=== PATIENT | female | born 1985 | race Caucasian/White ===

== ENCOUNTER 2020-01-23 15:23 | Emergency (ER) | payer BC, SELFPAY ==
--- NOTE | ~2020-01-23 | US_ITS ---
EXAMINATION: US OB >= 14 weeks Fetus DATE: 01/23/2020 17:09 INDICATION: Vaginal bleeding with TECHNIQUE: Real-time ultrasound of the pelvis was performed. COMPARISON: None. FINDINGS: There is a single living fetus in vertex presentation. The placenta is posterior and crosses the inte rnal cervical os. heart rate is 144 beats per minute (bpm). cardiac activity and m ovement are noted. The amniotic fluid index is subjectively normal. The following biometric data were obtained: Biparietal diameter (BPD): 3.5 cm; head circumference (HC): 13.6 cm; abdominal circumference (AC): 11 .5 cm; femur length (FL): 2.3 cm. These measurements are concordant. Estimated weight is 186 g +/- 27 g, which correlates with the 94th percentile when 07/07/2020 is used as estimated date of delivery. As single measurements, these parameters are each equal to the following estimated gestational ages w ith ranges of +/- 2 standard deviations: BPD: 17 weeks 0 days +/- 1 weeks 1 days. HC: 17 weeks 1 days +/- 1 weeks 1 days. AC: 17 weeks 2 days +/- 1 weeks 5 days. FL: 17 weeks 1 days +/- 1 weeks 3 days. estimated gestational age based solely on measurements from this exam is 17 weeks 1 days +/- 1 weeks 1 days. IMPRESSION: 1. Single living fetus in vertex presentation. 2. Estimated weight is 186 g +/- 27 g, which correlates with the 94th percentile when 07/07/2020 is used as estimated date of delivery. 3. Placenta previa. These findings were discussed with Dr. Sandeep MD in the Emergency Department at 1715 hours on 01/23. Reviewed, dictated and finalized at location A. OGY TUTOR IMPRESSION: 1. Single living fetus in vertex presentation. 2. Estimated weight is 186 g +/- 27 g, which correlates with the 94th per centile when 07/07/2020 is used as estimated date of delivery. 3. Placenta previa. These findings were discussed with Dr. Sandeep MD in the Emergency Department at 1715 hours on 01/23/2020.
[2020-01-23 15:33] VITALS: BP 144/99; PULSE 109; RESP 18; TEMP 36.2; O2SAT 100
--- NOTE | 2020-01-23 16:05 | PC.NURSE ---
HR 163 per handheld doppler, faint heart sounds heard.
[2020-01-23 16:17] LABS: Basophils Percent Auto 0.2 % (0.2-1.2); Eosinophils Absolute Auto 0.1 K/mm3 (0-0.3); Eosinophils Percent Auto 0.6 % (0-4.4); Hematocrit 37.3 % (37.0-47.0); Hemoglobin 12.6 g/dL (12.0-15.0); Immature Granulocyte Absolute 0.03 K/mm3 (0.00-0.031); Immature Granulocyte Percent A 0.3 % (0-0.5); Lymphocytes Absolute Auto 2.13 K/mm3 (0.9-3.2); Lymphocytes Percent Auto 18.2 % (18.3-44.2); Mean Corpuscular HGB Conc 33.8 g/dl (32-36); Mean Corpuscular Hemoglobin 31.1 pg (26-34); Mean Corpuscular Volume 92.1 fl (80-100); Mean Platelet Volume 10.5 fl (7.4-10.4); Monocytes Absolute Auto 0.5 K/mm3 (0.1-0.6); Monocytes Percent Auto 4.5 % (2.6-8.5); Neutrophils Absolute Auto 8.9 K/mm3 (1.3-6.7); Neutrophils Percent Auto 76.2 % (45.5-73.1); Platelet Count Result 336 k/mm3 (150-375); Red Blood Count 4.05 M/mm3 (4.2-5.4); Red Cell Distribution Width 12.1 % (11.5-14.5); White Blood Count 11.7 K/mm3 (4.5-10.0)
[2020-01-23 16:29] LABS: Add Urine Microscopic? YES; Appearance Urine Cloudy (Clear); Bacteria Urine 3+ /hpf; Bilirubin Urine Negative (Negative); Blood Urine 3+ (Negative); Color Urine Red (Yellow); Glucose Urine UA Negative (Negative); Ketones Urine Negative (Negative); Leukocyte Esterase Ur Negative LEU/UL (Negative); Nitrate Urine Negative (Negative); Protein Urine 1+ mg/dL (Negative); RBC Urine 21-50 /hpf (0-2); Squamous Epithelial Cell Urine Many /hpf (Few); Urobilinogen Urine Negative mg/dL (<2.0); WBC Urine 0-3 /hpf
[2020-01-23 16:31] LABS: Specific Grav Ur 1.004 (1.001-1.035)
--- NOTE | 2020-01-23 17:50 | ED.PREGNANCY ---
HPI - General Chief complaint: Vaginal Bleeding Stated complaint: preg/vag bleed Time Seen by Provider: 01/23/20 15:32 Source: patient Mode of arrival: ambulatory Limitations: no limitations History of Present Illness HPI Narrative: Patient presents with chief complaint of bright red vaginal bleeding that began at approximately 3 PM today. Patient states she was using the restroom and noted bright red blood when wiping. Patient denies any pelvic pain, nausea, vomiting, fever, trauma or any other symptoms. Patient states that this is her second and her first resulted in miscarriage at approximately 6 weeks. Patient states that her HEALTH INSURANCE SALES AGENT is Dr. Renu Perez. She reports she had her last ultrasound approximately 2 to 3 weeks ago and was told that her placenta was low-lying but denies any other no abnormalities. Patient has urinary symptoms or passage of large blood clot. Review of Systems Review of Systems: Narrative: CONSTITUTIONAL: Denies fever, chills, or sweats. EYES: Denies visual changes, redness, or discharge. ENT: Denies rhinorrhea, congestion, sore throat, or otalgia. CARDIOVASCULAR: Denies chest pain, palpitations, or edema. RESPIRATORY: Denies cough or dyspnea. GASTROINTESTINAL: Denies abdominal pain, nausea, vomiting, or diarrhea. GENITOURINARY: Reports vaginal bleeding SKIN: Denies rash or itching. MUSCULOSKELETAL: Denies back pain, joint pain, or myalgia. NEUROLOGIC: Denies headache, numbness, dizziness, or weakness. PSYCHIATRIC: Denies anxiety or depression. Exam Narrative: Exam Narrative: GENERAL: Well-appearing, well-nourished, and in no acute distress. HEAD: Normocephalic, atraumatic. EYES: PERRLA and EOMI. ENT: Nares clear, no rhinorrhea or epistaxis. Mucous membranes moist. External ears nose and mouth normal. NECK: Supple. No adenopathy or masses. CHEST: No respiratory distress. HEART: Regular rate and rhythm. Normal peripheral pulses. ABDOMEN: Soft, nontender, nondistended. EXTREMITIES: Normal range of motion. No edema. SKIN: Warm, dry, no rash. NEURO: No focal deficits. Alert and oriented x3. PSYCH: Patient is anxious and tearful.. Course Vital Signs Vital signs: Vital Signs Temperature 97.2 F L 01/23/20 15:33 Pulse Rate 109 H 01/23/20 15:33 Respiratory Rate 18 01/23/20 15:33 Blood Pressure 144/99 H 01/23/20 15:33 Pulse Oximetry 100 01/23/20 15:33 Temperature 97.2 F L 01/23/20 15:33 Pulse Rate 109 H 01/23/20 15:33 Respiratory Rate 18 01/23/20 15:33 Blood Pressure 144/99 H 01/23/20 15:33 Pulse Oximetry 100 01/23/20 15:33 MDM - OB/Uterine Contractions MDM Narrative Medical decision making narrative: Consult with Dr. Gaspar who is on-call for Dr. Renu Perez. He states patient can be discharged home and can follow-up in the office with them early next week. He states the patient does not have any lifting requirements but he would avoid heavy exercise and no sexual intercourse or putting anything into the vagina to avoid bumping cervix until given the clearance by HEALTH INSURANCE SALES AGENT. The patient was informed of these findings of placenta previa and the instructions given by her HEALTH INSURANCE SALES AGENT. Patient verbalized understanding agreement and states she is ready to be discharged home at this time. Differential Diagnosis Differential diagnosis: Likely pre-eclampsia and other (Miscarriage, placenta previa) Lab Data Result diagrams: 01/23/20 16:11 Labs: Lab Results 01/23/20 01/23/20 01/23/20 Range/Units 16:10 16:11 16:11 WBC 11.7 H (4.5-10.0) K/mm3 RBC 4.05 L (4.2-5.4) M/mm3 Hgb 12.6 (12.0-15.0) g/dL Hct 37.3 (37.0-47.0) % MCV 92.1 (80-100) fl MCH 31.1 (26-34) pg MCHC 33.8 (32-36) g/dl RDW 12.1 (11.5-14.5) % Plt Count 336 (150-375) k/mm3 MPV 10.5 H (7.4-10.4) fl Immature Gran % (Auto) 0.3 (0-0.5) % Neut % (Auto) 76.2 H (45.5-73.1) % Lymph % (Auto) 18.2 L (18.3-44.2) % [place] % (Auto) 4
[2020-01-23 18:03] VITALS: BP 132/84; PULSE 89; RESP 18; O2SAT 98
== END 2020-01-23 18:05 | disposition home or self-care (01) ==
PROVIDERS: Physician Assistant; Emergency Provider Family Medicine; PCP Obstetrics & Gynecology
DX: O44.12 Complete placenta previa with hemorrhage, second trimester (principal); Z3A.17 17 weeks gestation of pregnancy
CPT/HCPCS: 36415; 76805; 81001; 84702; 85025; 86850; 86900; 86901; 99284

== ENCOUNTER 2020-01-31 14:28 | Observation (INO) | payer BC, SELFPAY ==
[2020-01-31 14:45] VITALS: TEMP 36.6
[2020-01-31 14:47] VITALS: BP 126/68; PULSE 99
[2020-01-31 15:20] LABS: Add Urine Microscopic? NO; Appearance Urine Clear (Clear); Bilirubin Urine Negative (Negative); Blood Urine Negative (Negative); Color Urine Colorless (Yellow); Glucose Urine UA Negative (Negative); Ketones Urine Negative (Negative); Leukocyte Esterase Ur Negative LEU/UL (NEGATIVE); Nitrate Urine Negative (Negative); Protein Urine Negative (Negative); Specific Grav Ur 1.005 (1.001-1.035); Urobilinogen Urine Negative mg/dL (<2.0)
--- NOTE | 2020-01-31 15:57 | PC.NURSE ---
[address] Renu Perez.
--- NOTE | 2020-01-31 16:00 | PC.NURSE ---
1500 ROMplus verified as negative. No leaking noted on chux. Reassured pt of these two outcomes.
--- NOTE | 2020-02-01 07:18 | P.PNOB_ITS ---
OB - Triage/Final Diagnosis Visit Information Date of evaluation: 01/31/20 Reason for evaluation: other (leaking fluid) Evaluation Laboratory results: Laboratory Tests 01/31/20 15:14 Urine Color Colorless Urine Appearance Clear Urine pH 7.0 Ur Specific [place] 1.005 Urine Protein Negative Urine Glucose (UA) Negative Urine Ketones Negative Ur Blood (Man) Negative Urine Nitrate Negative Urine Bilirubin Negative Urine Urobilinogen Negative Ur Leukocyte Esterase Negative Vital signs: Vital Signs - 24 hr 01/31/20 14:45 01/31/20 14:47 Temperature 97.9 F Pulse Rate 99 Blood Pressure 126/68
== END 2020-01-31 15:40 | disposition home or self-care (01) ==
LOC: ANHOBPP 14:36
PROVIDERS: Admitting Provider Obstetrics & Gynecology; PCP Obstetrics & Gynecology; Visit Provider Obstetrics & Gynecology
DX: O42.90 Premature rupture of membranes, unspecified as to length of time between rupture and onset of labor, unspecified weeks of gestation (principal); Z3A.00 Weeks of gestation of pregnancy not specified
CPT/HCPCS: 81003; 84112; 87086; 87088; G0378; G0379

== ENCOUNTER 2020-02-10 06:42 | Observation (INO) | payer BC, SELFPAY ==
--- NOTE | ~2020-02-10 | US_ITS ---
EXAMINATION: US OB limited, US OB transvaginal EXAM DATE: 02/10/2020 07:44 INDICATION: Vaginal bleeding, . Second trimester. TECHNIQUE: Pelvic obstetrical transabdominal and transvaginal sonogram was performed by a technellen helms. There are multiple grayscale and Doppler images available for interpretation. Comparison is made to prior examination from 01/23/2020. FINDINGS: There is a single fetus identified in transverse presentation with a heart rate of 154 beat s per minute. The placenta is located in the low posterior position, placental margin appears to exte nd to within 1 cm of internal cervical os. Cervical canal length is 4 cm, with anechoic region at the placental margin near the internal cervical os measuring 1 cm in diameter by 4 mm in thickness, coul d be tiny retroplacental hemorrhage. There is another similar-appearing thin anechoic region higher u p measuring 2 x 3 cm diameter, by 7 mm in thickness. Amniotic Fluid Index 14 cm, normal. IMPRESSION: 1. Low-lying placenta with 2 small anechoic retroplacental regions, possible small retroplacental he morrhages. Recommend follow-up exam. 2. Normal heart rate, 1 54 bpm. 3. Normal MAIKEL 14 cm. Reviewed, dictated and finalized at location A. IMPRESSION: 1. Low-lying placenta with 2 small anechoic retroplacental regions, possible s mall retroplacental hemorrhages. Recommend follow-up exam. 2. Normal heart rate, 1 54 bpm. 3. Normal MAIKEL 14 cm.
--- NOTE | 2020-02-10 06:42 | OBADM ---
This patient, Lorraine Estrada, admitted to the OB room OB Post 117 for observation. Patient/family oriented to hospital policies and general routines including ID bracelet, bed and alarms, visiting hours, pain management, procedures, bathroom and other care routines, personal items, smoking policy, room service/diet, and visiting hours. Patient/Family are encouraged to report perceived risks to care and to ask questions if they do not understand what they are told or what they should do.
[2020-02-10 06:59] VITALS: BP 109/60; PULSE 69
[2020-02-10 07:00] VITALS: BP 110/60; PULSE 72
--- NOTE | 2020-02-10 08:08 | PM.OBTRLD ---
OB - Triage/Final Diagnosis Visit Information Date of evaluation: 02/10/20 Reason for evaluation: other (spotting) Evaluation Vital signs: Vital Signs - 24 hr 02/10/20 06:59 02/10/20 07:00 Pulse Rate 69 72 Blood Pressure 109/60 110/60
== END 2020-02-10 08:40 | disposition home or self-care (01) ==
PROVIDERS: Admitting Provider Obstetrics & Gynecology; Visit Provider Obstetrics & Gynecology
DX: O26.852 Spotting complicating pregnancy, second trimester (principal); Z3A.18 18 weeks gestation of pregnancy
CPT/HCPCS: 76815; 76817; G0378; G0379

== ENCOUNTER 2020-05-06 16:48 | Outpatient (CLI) | payer OTHER, BC, SELFPAY ==
[2020-05-06 17:09] VITALS: BP 121/72; PULSE 92
[2020-05-06 17:15] VITALS: BP 120/70; PULSE 86
[2020-05-06 17:49] VITALS: BP 120/70; PULSE 93
== END 2020-05-06 18:00 | disposition home or self-care (01) ==
LOC: ANHOBOP 17:00 → ANHOBPP 17:01
PROVIDERS: Visit Provider Obstetrics & Gynecology
DX: O42.90 Premature rupture of membranes, unspecified as to length of time between rupture and onset of labor, unspecified weeks of gestation (principal); Z3A.00 Weeks of gestation of pregnancy not specified
CPT/HCPCS: 59025; 84112; 99199

== ENCOUNTER 2020-06-06 11:24 | Outpatient (CLI) | payer BC, SELFPAY ==
[2020-06-06 12:14] VITALS: BP 127/76; PULSE 78
== END 2020-06-06 12:20 | disposition home or self-care (01) ==
LOC: ANHOBOP 12:15 → ANHOBPP 12:16
PROVIDERS: Visit Provider Obstetrics & Gynecology
DX: O42.90 Premature rupture of membranes, unspecified as to length of time between rupture and onset of labor, unspecified weeks of gestation (principal); Z3A.00 Weeks of gestation of pregnancy not specified
CPT/HCPCS: 59025; 84112; 99199

== ENCOUNTER 2020-06-16 12:55 | Outpatient (RCR) | payer BC, SELFPAY ==
[2020-05-05 14:42] VITALS: BP 119/71
--- NOTE | 2020-05-05 17:22 | PC.NURSE ---
Spoke with Dr. Renu Perez, reactive NST for gesational age, patient amrked 4 movemnts in 30 mintues, orders to DC home.
[2020-05-18 15:40] VITALS: BP 113/59; PULSE 87
[2020-05-26 11:02] VITALS: BP 115/65; PULSE 88
[2020-06-02 08:54] VITALS: BP 121/67; PULSE 88
[2020-06-09 10:43] VITALS: BP 122/70; PULSE 87
[2020-06-16 13:20] VITALS: BP 127/72; PULSE 80
== END 2020-06-25 11:15 | disposition home or self-care (01) ==
LOC: ANHOBOP 12:55
PROVIDERS: Visit Provider Obstetrics & Gynecology
DX: O36.8130 Decreased fetal movements, third trimester, not applicable or unspecified (principal); Z3A.31 31 weeks gestation of pregnancy; O41.03X0 Oligohydramnios, third trimester, not applicable or unspecified; Z3A.32 32 weeks gestation of pregnancy; Z3A.34 34 weeks gestation of pregnancy; O09.813 Supervision of pregnancy resulting from assisted reproductive technology, third trimester; Z3A.35 35 weeks gestation of pregnancy; Z3A.37 37 weeks gestation of pregnancy
CPT/HCPCS: 59025

== ENCOUNTER 2020-06-23 18:01 | Inpatient (IN) | payer BC, OTHER, SELFPAY ==
[2020-06-23] VITALS (15 sets, daily range): BP systolic 103–128; BP diastolic 57–82; PULSE 70–87; TEMP 36.5–37.3; BMI 40.7
--- NOTE | 2020-06-23 18:01 | LDADM ---
This patient, Lorraine Estrada, was admitted to Labor/Delivery/Recovery 106 on 06/23/20 at 18:01. Plans for labor, pain management and were discussed with patient. Patient/family oriented to hospital policies and general routines including ID bracelet, bed and alarms, visiting hours, pain management, procedures, bathroom and other care routines, personal items, smoking policy, room service/diet and guest tray routines, security routines, and visiting hours. Patient/Family are encouraged to report perceived risks to care and to ask questions if they do not understand what they are told or what they should do. See OBIX for further documentation.
[2020-06-23 18:50] LABS: Basophils Percent Auto 0.1 % (0.2-1.2); Eosinophils Absolute Auto 0.1 K/mm3 (0-0.3); Eosinophils Percent Auto 0.6 % (0-4.4); Hematocrit 32.9 % (37.0-47.0); Immature Granulocyte Absolute 0.05 K/mm3 (0.00-0.031); Immature Granulocyte Percent A 0.4 % (0-0.5); Lymphocytes Percent Auto 20.4 % (18.3-44.2); Mean Corpuscular HGB Conc 33.4 g/dl (32-36); Mean Corpuscular Hemoglobin 30.6 pg (26-34); Mean Corpuscular Volume 91.6 fl (80-100); Mean Platelet Volume 10.6 fl (7.4-10.4); Monocytes Absolute Auto 0.6 K/mm3 (0.1-0.6); Monocytes Percent Auto 5.2 % (2.6-8.5); Neutrophils Percent Auto 73.3 % (45.5-73.1); Platelet Count Result 325 k/mm3 (150-375); Red Blood Count 3.59 M/mm3 (4.2-5.4); Red Cell Distribution Width 12.8 % (11.5-14.5); White Blood Count 12.3 K/mm3 (4.5-10.0)
[2020-06-23] MEDS: DINOPROSTONE 10 MG VAG INSERT VAGINAL (18:55)
[2020-06-23] MEDS: LACTATED RINGERS 1,000 ML 125 ML IV CONT (19:00)
[2020-06-23] MEDS: AMPICILLIN 2 GM/NS 100 ML 2 GM/100 ML BAG IVPB (19:01)
[2020-06-23 19:02] LABS: Alanine Aminotransferase 10 U/L (4-35); Albumin Level 3.3 g/dL (3.5-5.1); Alkaline Phosphatase 124 U/L (38-126); Anion Gap 10.7 mmol/L (7-16); Aspartate Amino Transferase 17 U/L (14-36); Bilirubin,Total 0.2 mg/dL (0.2-1.3); Blood Urea Nitrogen 7 mg/dL (7-17); Calcium 9.2 mg/dL (8.4-10.2); Carbon Dioxide 22 mmol/L (22-30); Chloride 104 mmol/L (98-107); Estimated CRCL calculation 179 ml/min; Estimated Glomerular Filt Rate > 60; Glucose 110 mg/dL (65-105); Potassium 3.7 mmol/L (3.4-5.0); Sodium 133 mmol/L (137-145); Uric Acid 4.9 mg/dL (2.5-7.5)
[2020-06-23] MEDS: busPIRone HCL 10 MG TABLET PO (20:02)
[2020-06-23] MEDS: ZOLPIDEM TARTRATE 5 MG TABLET PO (20:02)
--- NOTE | 2020-06-23 21:14 | WPDANESEPPF ---
Anes - Initial Pre Proc Eval Procedure: labor epidural Date/Time: 06/23/20 21:14 Surgeon: Hakan Gaming MD Pre Op Diagnosis: labor pain Pre Op Diagnosis: Induction of Labor Patient Data Age: 34 Gender: F Height: 1.7 m Weight: 118 kg Last Vital Signs Temp 36.5 C 06/23/20 20:56 Pulse 72 06/23/20 20:45 BP 117/69 06/23/20 20:45 Allergies Allergy/AdvReac Type Severity Reaction Status Date / Time prochlorperazine Allergy Severe MUSCLE Verified 06/16/20 12:38 DYSTONIA Home Medications Medication Instructions Recorded Confirmed Type buspirone 10 mg PO BID 02/10/20 06/23/20 History levothyroxine 50 mcg PO DAILY 02/10/20 06/23/20 History PNV cmb#95-ferrous fumarate-FA 1 tablet PO DAILY 05/06/20 06/23/20 History [] cholecalciferol (vitamin D3) 50 mcg PO DAILY 05/06/20 06/23/20 History [Vitamin D3] Laboratory Tests 06/23/20 06/23/20 06/23/20 18:37 18:37 18:37 WBC 12.3 K/mm3 H K/mm3 (4.5-10.0) RBC 3.59 M/mm3 L M/mm3 (4.2-5.4) Hgb 11.0 g/dL L g/dL (12.0-15.0) Hct 32.9 % L % (37.0-47.0) MCV 91.6 fl fl (80-100) MCH 30.6 pg pg (26-34) MCHC 33.4 g/dl g/dl (32-36) RDW 12.8 % % (11.5-14.5) Plt Count 325 k/mm3 k/mm3 (150-375) MPV 10.6 fl H fl (7.4-10.4) Immature Gran % (Auto) 0.4 % % (0-0.5) Neut % (Auto) 73.3 % H % (45.5-73.1) Lymph % (Auto) 20.4 % % (18.3-44.2) [place] % (Auto) 5.2 % % (2.6-8.5) Eos % (Auto) 0.6 % % (0-4.4) Baso % (Auto) 0.1 % L % (0.2-1.2) Lymph # (Auto) 2.50 K/mm3 K/mm3 (0.9-3.2) [place] # (Auto) 0.6 K/mm3 K/mm3 (0.1-0.6) Eos # (Auto) 0.1 K/mm3 K/mm3 (0-0.3) Baso # (Auto) 0.0 K/mm3 K/mm3 (0.0-0.1) Abs Immat Gran (auto) 0.05 K/mm3 H K/mm3 (0.00-0.031) Absolute Neuts (auto) 9.0 K/mm3 H K/mm3 (1.3-6.7) Absolute Nucleated RBC 0.0 K/mm3 K/mm3 (0.0-0.012) Nucleated RBC % 0.0 % % (0.0-0.2) Sodium Potassium Chloride Carbon Dioxide Anion Gap BUN Creatinine Estim Creat Clear Calc Estimated GFR Glucose Uric Acid Cancelled Calcium Total Bilirubin AST ALT Alkaline Phosphatase Total Protein Albumin RPR Pending Blood Type Antibody Screen 06/23/20 06/23/20 18:37 18:37 WBC RBC Hgb Hct MCV MCH MCHC RDW Plt Count MPV Immature Gran % (Auto) Neut % (Auto) Lymph % (Auto) [place] % (Auto) Eos % (Auto) Baso % (Auto) Lymph # (Auto) [place] # (Auto) Eos # (Auto) Baso # (Auto) Abs Immat Gran (auto) Absolute Neuts (auto) Absolute Nucleated RBC Nucleated RBC % Sodium 133 mmol/L L mmol/L (137-145) Potassium 3.7 mmol/L mmol/L (3.4-5.0) Chloride 104 mmol/L mmol/L (98-107) Carbon Dioxide 22 mmol/L mmol/L (22-30) Anion Gap 10.7 mmol/L mmol/L (7-16) BUN 7 mg/dL mg/dL (7-17) Creatinine 0.50 mg/dL L mg/dL (0.7-1.0) Estim Creat Clear Calc 179 ml/min ml/min Estimated GFR > 60 (59 - ) Glucose 110 mg/dL H mg/dL (65-105) Uric Acid 4.9 mg/dL mg/dL (2.5-7.5) Calcium 9.2 mg/dL mg/dL (8.4-10.2) Total Bilirubin 0.2 mg/dL mg/dL (0.2-1.3) AST 17 U/L U/L (14-36) ALT 10 U/L U/L (4-35) Alkaline Phosphatase 124 U/L U/L (38-126) Total Protein 6.0 g/dL L g/dL (6.3-8.2) Albumin 3.3 g/dL L g/dL (3.5-5.1)
[2020-06-23] MEDS: AMPICILLIN 1 GM/NS 50 ML 1 GM/50 ML BAG IVPB (22:54)
[2020-06-24] VITALS (46 sets, daily range): BP systolic 75–142; BP diastolic 48–126; PULSE 65–104; TEMP 36.3–37.2
[2020-06-24] MEDS: AMPICILLIN 1 GM/NS 50 ML 1 GM/50 ML BAG IVPB ×6 (03:10→23:56)
[2020-06-24] MEDS: OXYTOCIN 30 UNITS/NS 500 ML 30 UNITS/500 ML BAG 6 UNITS IV CONT (05:18)
--- NOTE | 2020-06-24 06:33 | PM.IMHP ---
H&P: HPI History of Present Illness Chief complaint: Induction of Labor Narrative: Lorraine Estrada is a 34 year old female 010 whose last menstrual period was unknown but is an EDC of 07/07/2020 known by in vitro fertilization, presents for induction of labor secondary to oligohydramnios. She is positive for group B strep. Her has been mostly uncomplicated. She is hypothyroid but has been euthyroid on replacement. Review of Systems Review of Systems: All systems reviewed & are unremarkable except as noted in HPI and below PMFSH Past Medical History Medical History Herniated disc Family History Family History Mother Diabetes mellitus Alcohol abuse Father Hypertension Grandparent Colon cancer Breast cancer Pancreatic cancer Sibling SIDS (sudden syndrome) Social History Social History Years smoked: 10 Smoking status: Former smoker Substance use: never Spiritual care concerns: No Meds Home Medications and Allergies Home Medications Medication Instructions Recorded Confirmed Type buspirone 10 mg PO BID 02/10/20 06/23/20 History levothyroxine 50 mcg PO DAILY 02/10/20 06/23/20 History PNV cmb#95-ferrous fumarate-FA 1 tablet PO DAILY 05/06/20 06/23/20 History [] cholecalciferol (vitamin D3) 50 mcg PO DAILY 05/06/20 06/23/20 History [Vitamin D3] Allergies Allergy/AdvReac Type Severity Reaction Status Date / Time prochlorperazine Allergy Severe MUSCLE Verified 06/16/20 12:38 DYSTONIA Vital Signs Vital Signs - 24 hr 06/23/20 18:39 06/23/20 18:42 06/23/20 18:45 Temperature 99.1 F Pulse Rate 86 87 Blood Pressure 121/82 128/79 06/23/20 19:15 06/23/20 19:30 06/23/20 19:45 Temperature Pulse Rate 82 77 83 Blood Pressure 120/71 117/67 119/70 06/23/20 20:00 06/23/20 20:15 06/23/20 20:30 Temperature Pulse Rate 71 70 73 Blood Pressure 120/69 115/73 115/68 06/23/20 20:45 06/23/20 20:56 06/23/20 22:54 Temperature 97.7 F Pulse Rate 72 83 Blood Pressure 117/69 120/71 06/23/20 22:55 06/23/20 23:00 06/23/20 23:15 Temperature 98.1 F Pulse Rate 73 79 Blood Pressure 117/68 103/57 L 06/24/20 03:12 06/24/20 03:14 06/24/20 03:16 Temperature 97.5 F L Pulse Rate 85 85 Blood Pressure 111/54 L 99/52 L 06/24/20 03:30 06/24/20 03:45 06/24/20 04:00 Temperature Pulse Rate 85 83 88 Blood Pressure 101/52 L 102/54 L 102/54 L 06/24/20 04:15 06/24/20 05:23 06/24/20 05:30 Temperature Pulse Rate 104 H 89 86 Blood Pressure 119/79 120/57 L 117/66 06/24/20 05:45 06/24/20 06:00 06/24/20 06:16 Temperature Pulse Rate 81 88 86 Blood Pressure 114/64 95/48 L 109/62 06/24/20 06:32 Temperature 98.9 F Pulse Rate Blood Pressure Exam Const: General: no acute distress Eyes: General: appearance normal, both eyes and all related structures Neck: Neck: supple and no JVD Thyroid: thyroid normal Resp: Effort & Inspection: normal respiratory effort Auscultation: clear to auscultation bilaterally Cardio: Rate: regular rate Rhythm: regular rhythm GI: Inspection: non-distended GI Palp: Yes Soft to palpation, No Tenderness to palpation present (GI) and No Guarding due to palpation present (GI) Auscultation: normal bowel sounds : General: Yes bladder normal to palpation External Female Exam: normal external appearance Bimanual exam- vagina & uterus: normal palpation ( Cervix is a dimple and soft. FHTs were reassuring) Skin: General skin exam: no rashes or lesions noted Extrem: General: normal to inspection and no edema Psych: Mental Status: mental status grossly normal Affect: normal affect H&P: Results Labs Labs: Short CBC 06/23/20 Range/Units 18:37 WBC 12.3 H (4.5-10.0) K/mm3 Hgb 11.0 L (
[2020-06-24 07:30] LABS: Rapid Plasma Reagin Non-Reactive (NonReactive)
[2020-06-24] MEDS: LACTATED RINGERS 1,000 ML 125 ML IV CONT ×2 (11:11→23:56)
--- NOTE | 2020-06-24 12:07 | P.PNOB_ITS ---
OB - PN: Subj Subjective Date/time seen: 06/24/20 12:07 Interval history: cx unchanged/pit at 40 fhts ok poor progress OB - PN: Obj Data Labs CBC & Chem 7: 06/23/20 18:37 06/23/20 18:37 Labs: Laboratory Results - last 24 hr 06/23/20 06/23/20 06/23/20 18:37 18:37 18:37 WBC 12.3 H RBC 3.59 L Hgb 11.0 L Hct 32.9 L MCV 91.6 MCH 30.6 MCHC 33.4 RDW 12.8 Plt Count 325 MPV 10.6 H Immature Gran % (Auto) 0.4 Neut % (Auto) 73.3 H Lymph % (Auto) 20.4 [place] % (Auto) 5.2 Eos % (Auto) 0.6 Baso % (Auto) 0.1 L Lymph # (Auto) 2.50 [place] # (Auto) 0.6 Eos # (Auto) 0.1 Baso # (Auto) 0.0 Abs Immat Gran (auto) 0.05 H Absolute Neuts (auto) 9.0 H Absolute Nucleated RBC 0.0 Nucleated RBC % 0.0 Sodium Potassium Chloride Carbon Dioxide Anion Gap BUN Creatinine Estim Creat Clear Calc Estimated GFR Glucose Uric Acid Cancelled Calcium Total Bilirubin AST ALT Alkaline Phosphatase Total Protein Albumin RPR Non-reactive Blood Type Antibody Screen 06/23/20 06/23/20 18:37 18:37 WBC RBC Hgb Hct MCV MCH MCHC RDW Plt Count MPV Immature Gran % (Auto) Neut % (Auto) Lymph % (Auto) [place] % (Auto) Eos % (Auto) Baso % (Auto) Lymph # (Auto) [place] # (Auto) Eos # (Auto) Baso # (Auto) Abs Immat Gran (auto) Absolute Neuts (auto) Absolute Nucleated RBC Nucleated RBC % Sodium 133 L Potassium 3.7 Chloride 104 Carbon Dioxide 22 Anion Gap 10.7 BUN 7 Creatinine 0.50 L Estim Creat Clear Calc 179 Estimated GFR > 60 Glucose 110 H Uric Acid 4.9 Calcium 9.2 Total Bilirubin 0.2 AST 17 ALT 10 Alkaline Phosphatase 124 Total Protein 6.0 L Albumin 3.3 L RPR Blood Type AB Positive Antibody Screen Negative OB - PN A/P Time Spent With Patient Time: Total time spent is greater than 50% in coordination of care (as documented) at patient's floor/unit and/or counseling patient:
[2020-06-24] MEDS: ACETAMINOPHEN 500 MG TABLET 1000 MG PO (14:17)
--- NOTE | 2020-06-24 16:29 | PM.OBPNVD ---
OB - PN: Subj Subjective Date/time seen: 06/24/20 16:29 Interval history: cx unchanged/pit at 40 fhts ok poor progress offered rest/cervidil tonight/pit again am OB - PN: Obj Data Labs CBC & Chem 7: 06/23/20 18:37 06/23/20 18:37 Labs: Laboratory Results - last 24 hr 06/23/20 06/23/20 06/23/20 18:37 18:37 18:37 WBC 12.3 H RBC 3.59 L Hgb 11.0 L Hct 32.9 L MCV 91.6 MCH 30.6 MCHC 33.4 RDW 12.8 Plt Count 325 MPV 10.6 H Immature Gran % (Auto) 0.4 Neut % (Auto) 73.3 H Lymph % (Auto) 20.4 [place] % (Auto) 5.2 Eos % (Auto) 0.6 Baso % (Auto) 0.1 L Lymph # (Auto) 2.50 [place] # (Auto) 0.6 Eos # (Auto) 0.1 Baso # (Auto) 0.0 Abs Immat Gran (auto) 0.05 H Absolute Neuts (auto) 9.0 H Absolute Nucleated RBC 0.0 Nucleated RBC % 0.0 Sodium Potassium Chloride Carbon Dioxide Anion Gap BUN Creatinine Estim Creat Clear Calc Estimated GFR Glucose Uric Acid Cancelled Calcium Total Bilirubin AST ALT Alkaline Phosphatase Total Protein Albumin RPR Non-reactive Blood Type Antibody Screen 06/23/20 06/23/20 18:37 18:37 WBC RBC Hgb Hct MCV MCH MCHC RDW Plt Count MPV Immature Gran % (Auto) Neut % (Auto) Lymph % (Auto) [place] % (Auto) Eos % (Auto) Baso % (Auto) Lymph # (Auto) [place] # (Auto) Eos # (Auto) Baso # (Auto) Abs Immat Gran (auto) Absolute Neuts (auto) Absolute Nucleated RBC Nucleated RBC % Sodium 133 L Potassium 3.7 Chloride 104 Carbon Dioxide 22 Anion Gap 10.7 BUN 7 Creatinine 0.50 L Estim Creat Clear Calc 179 Estimated GFR > 60 Glucose 110 H Uric Acid 4.9 Calcium 9.2 Total Bilirubin 0.2 AST 17 ALT 10 Alkaline Phosphatase 124 Total Protein 6.0 L Albumin 3.3 L RPR Blood Type AB Positive Antibody Screen Negative OB - PN A/P Time Spent With Patient Time: Total time spent is greater than 50% in coordination of care (as documented) at patient's floor/unit and/or counseling patient:
[2020-06-24] MEDS: DINOPROSTONE 10 MG VAG INSERT VAGINAL (18:47)
[2020-06-24] MEDS: busPIRone HCL 10 MG TABLET PO (19:52)
[2020-06-24] MEDS: ZOLPIDEM TARTRATE 5 MG TABLET PO (19:52)
[2020-06-25] VITALS (94 sets, daily range): BP systolic 71–128; BP diastolic 39–90; PULSE 45–170; RESP 16–20; TEMP 36.5–37.3; O2SAT 93–100
[2020-06-25] MEDS: AMPICILLIN 1 GM/NS 50 ML 1 GM/50 ML BAG IVPB ×2 (03:56→08:07)
[2020-06-25] MEDS: OXYTOCIN 30 UNITS/NS 500 ML 30 UNITS/500 ML BAG 6 UNITS IV CONT (04:38)
--- NOTE | 2020-06-25 06:39 | PM.OBPNVD ---
OB - PN: Subj Subjective Date/time seen: 06/25/20 06:39 Interval history: styill closed fhts ok continue pit OB - PN: Obj Data Labs CBC & Chem 7: 06/23/20 18:37 06/23/20 18:37 Labs: Laboratory Results - last 24 hr 06/23/20 18:37 RPR Non-reactive OB - PN A/P Time Spent With Patient Time: Total time spent is greater than 50% in coordination of care (as documented) at patient's floor/unit and/or counseling patient:
--- NOTE | 2020-06-25 07:14 | WPDANESEPP ---
Anes - Eval Pre Procedure Procedure: Labor epidural Date/Time: 06/25/20 07:14 Surgeon: Amy Preop Diagnosis: pain during labor Pre Op Diagnosis: Induction of Labor Patient Data Age: 34 Gender: F Height: 1.7 m Weight: 118 kg Last Vital Signs Temp 36.6 C 06/25/20 04:00 Pulse 71 06/25/20 07:00 BP 122/77 06/25/20 07:00 Allergies Allergy/AdvReac Type Severity Reaction Status Date / Time prochlorperazine Allergy Severe MUSCLE Verified 06/16/20 12:38 DYSTONIA Home Medications Medication Instructions Recorded Confirmed Type buspirone 10 mg PO BID 02/10/20 06/23/20 History levothyroxine 50 mcg PO DAILY 02/10/20 06/23/20 History PNV cmb#95-ferrous fumarate-FA 1 tablet PO DAILY 05/06/20 06/23/20 History [] cholecalciferol (vitamin D3) 50 mcg PO DAILY 05/06/20 06/23/20 History [Vitamin D3] Laboratory Tests 06/23/20 18:37 RPR Non-reactive (NonReactive) Patient hx anesthesia problems: none Family hx anesthesia problems: none PMFSH Past Medical History Medical History (Updated 06/25/20 @ 07:15 by Latoya Keenan CRNA) Herniated disc Hypothyroidism affecting Morbid obesity with BMI of 40.0-44.9, adult Family History Family History Mother Diabetes mellitus Alcohol abuse Father Hypertension Grandparent Colon cancer Breast cancer Pancreatic cancer Sibling SIDS (sudden infant syndrome) Social History Social History Years smoked: 10 Smoking status: Former smoker Substance use: never Spiritual care concerns: No Exam Day of Procedure 06/25/20 07:14
--- NOTE | 2020-06-25 11:41 | WPDANESEPPF ---
Anes - Initial Pre Proc Eval Procedure: Operation Date: 06/25/20 12:00 Proposed Procedures p Section - Hakan Gaming MD Date/Time: 06/25/20 11:41 Surgeon: Hakan Gaming MD Pre Op Diagnosis: Induction of Labor Patient Data Age: 34 Gender: F Height: 1.7 m Weight: 118 kg Last Vital Signs Temp 36.5 C 06/25/20 06:47 Pulse 86 06/25/20 11:15 BP 120/63 06/25/20 11:15 Allergies Allergy/AdvReac Type Severity Reaction Status Date / Time prochlorperazine Allergy Severe MUSCLE Verified 06/16/20 12:38 DYSTONIA Home Medications Medication Instructions Recorded Confirmed Type buspirone 10 mg PO BID 02/10/20 06/23/20 History levothyroxine 50 mcg PO DAILY 02/10/20 06/23/20 History PNV cmb#95-ferrous fumarate-FA 1 tablet PO DAILY 05/06/20 06/23/20 History [] cholecalciferol (vitamin D3) 50 mcg PO DAILY 05/06/20 06/23/20 History [Vitamin D3] Patient hx anesthesia problems: none Family hx anesthesia problems: none PMFSH Past Medical History Medical History (Updated 06/25/20 @ 07:15 by Latoya Keenan CRNA) Herniated disc Hypothyroidism affecting Morbid obesity with BMI of 40.0-44.9, adult Family History Family History Mother Diabetes mellitus Alcohol abuse Father Hypertension Grandparent Colon cancer Breast cancer Pancreatic cancer Sibling SIDS (sudden syndrome) Social History Social History Years smoked: 10 Smoking status: Former smoker Substance use: never Spiritual care concerns: No Anes - Eval Final PreProcedure Day of Procedure 06/25/20 11:41 Patient weight: morbidly obese Heart: regular rate and rhythm Lungs: clear to auscultation and normal air movement Airway: Mallampati scale class II Neurological: alert and oriented Last oral intake: >/= 8 hours ASA classification: III Emergent: no Anesthetic plan: proceed Anesthesia type and monitoring: regional spinal and standard monitoring Informed Consent: The patient's anesthetic plan and its attendant risks and benefits were discussed with the patient/family/POA. Questions were solicited and answers provided to the satisfaction of the patient/family/POA.
--- NOTE | 2020-06-25 11:58 | PM.OBPNVD ---
OB - PN: Subj Subjective Date/time seen: 06/25/20 11:58 Interval history: no change offered ltcs fhts ok pt agrees OB - PN: Obj Data Labs CBC & Chem 7: 06/23/20 18:37 06/23/20 18:37 OB - PN A/P Time Spent With Patient Time: Total time spent is greater than 50% in coordination of care (as documented) at patient's floor/unit and/or counseling patient:
--- NOTE | 2020-06-25 13:34 | P.OP_ITS ---
Procedure Note - Detailed Date of procedure: 06/25/20 Pre-op diagnosis: Induction of Labor Surgeon: Hakan Gaming MD Postop diagnosis oligohydramnios/ arrest ofdilatation Anesthesia: Epidural Findings: Male infant 6 lb 15 oz with Apgars of 9 and 9 at 1 5 minutes respectively Q BL: 520cc Complications: None Procedure: Primary low-transverse section Description procedure: Patient was prepped draped normal sterile fashion placed in the supine position. Under excellent spinal an anesthetic the abdomen was entered in Pfannenstiel fashion. The abdomen was entered with sharp dissection the fascia incised in an upward outward fashion bilaterally. The underlying muscles were sharply dissected the parietal peritoneum elevated by Denisse clamps. This was carried superiorly and inferiorly to the dome of the bladder. A bladder flap was formed and a bladder blade returned. A low-transverse incision made in the head delivered in the ASHLEY position. Anterior posterior shoulder delivered spontaneously. Cord was clamped x2 and cut and the passed off the table given Apgars of 9 at minute and 9 [id number]. Cord blood was drawn and the placenta was then delivered intact manually. Uterus delivered on the abdomen wrapped in a moist towel. The remaining debris in the uterus was charlene an in after assuring no debris remained, the hysterotomy incision was closed with running locking 0 Vicryl from lateral edge to lateral edge. This was followed by 2nd imbricating running locking 0 Koul Vicryl from lateral edge to lateral edge. Hemostasis was assured. Tubes and ovaries appeared within normal limits. The uterus returned to the abdomen. The hysterotomy incision inspected 1 last time and noted be hemostatic. The laps removed and accounted for. The fascia closed with continuous running 0 Vicryl from lateral edge to midline bilaterally. Irrigation subcutaneous layer and the skin was closed with 4 O Monocryl and glue. All sponge, needle, instrument counts were correct. The patient went to recovery in satisfactory condition. There were no immediate complications
--- NOTE | 2020-06-25 16:09 | OBPPTRN ---
Patient transferred to post room # 285 via stretcher. Support person present. Oriented to unit, room, information board, rooming in, admission packet and security measures. Patient verbalizes understanding.
[2020-06-25] MEDS: busPIRone HCL 10 MG TABLET PO (21:00)
[2020-06-26 04:50] VITALS: BP 121/76; PULSE 76; RESP 16; TEMP 36.7
[2020-06-26 05:18] LABS: Basophils Percent Auto 0.2 % (0.2-1.2); Eosinophils Absolute Auto 0.1 K/mm3 (0-0.3); Eosinophils Percent Auto 0.4 % (0-4.4); Hematocrit 29.5 % (37.0-47.0); Hemoglobin 9.7 g/dL (12.0-15.0); Immature Granulocyte Absolute 0.05 K/mm3 (0.00-0.031); Immature Granulocyte Percent A 0.4 % (0-0.5); Lymphocytes Absolute Auto 1.87 K/mm3 (0.9-3.2); Lymphocytes Percent Auto 15.4 % (18.3-44.2); Mean Corpuscular HGB Conc 32.9 g/dl (32-36); Mean Corpuscular Hemoglobin 30.3 pg (26-34); Mean Corpuscular Volume 92.2 fl (80-100); Mean Platelet Volume 10.8 fl (7.4-10.4); Monocytes Absolute Auto 0.8 K/mm3 (0.1-0.6); Monocytes Percent Auto 6.2 % (2.6-8.5); Neutrophils Absolute Auto 9.4 K/mm3 (1.3-6.7); Neutrophils Percent Auto 77.4 % (45.5-73.1); Platelet Count Result 278 k/mm3 (150-375); Red Cell Distribution Width 12.9 % (11.5-14.5); White Blood Count 12.2 K/mm3 (4.5-10.0)
--- NOTE | 2020-06-26 06:36 | PM.OBPNVD ---
OB - PN: Subj Subjective Date/time seen: 06/26/20 06:36 Interval history: Pt doing well this AM. No complaints. Pain is controlled with PO medications. Ambulating and voiding without difficulty. Pt tolerating PO without N/V. Patient comments: no complaints and pain well controlled; no flatus present OB - PN: Obj Data Labs CBC & Chem 7: 06/26/20 04:50 06/23/20 18:37 Labs: Laboratory Results - last 24 hr 06/26/20 04:50 WBC 12.2 H RBC 3.20 L Hgb 9.7 L Hct 29.5 L MCV 92.2 MCH 30.3 MCHC 32.9 RDW 12.9 Plt Count 278 MPV 10.8 H Immature Gran % (Auto) 0.4 Neut % (Auto) 77.4 H Lymph % (Auto) 15.4 L [place] % (Auto) 6.2 Eos % (Auto) 0.4 Baso % (Auto) 0.2 Lymph # (Auto) 1.87 [place] # (Auto) 0.8 H Eos # (Auto) 0.1 Baso # (Auto) 0.0 Abs Immat Gran (auto) 0.05 H Absolute Neuts (auto) 9.4 H Absolute Nucleated RBC 0.0 Nucleated RBC % 0.0 OB - PN A/P Plan day: 1 Plan: routine care Comments: patient doing well this AM voiding spontaneously advance diet as tolerated H/H 9.06/23, will start iron daily continue routine PP care plan for infant circumcision today Time Spent With Patient Time: Total time spent is greater than 50% in coordination of care (as documented) at patient's floor/unit and/or counseling patient: Time with patient: less than 15 minutes Review of Systems Constitutional: Constitutional: Reports no additional constitutional complaints Cardiovascular: Cardiovascular: Reports no additional cardiovascular complaints Respiratory: Respiratory: Reports no additional respiratory complaints Gastrointestinal: Gastrointestinal: Reports no additional gastrointestinal complaints Genitourinary: Genitourinary: Reports no additional female genitourinary complaints Exam Const: General: comfortable and no acute distress Resp: Effort & Inspection: normal respiratory effort Auscultation: clear to auscultation bilaterally Cardio: Rate: regular rate GI: GI Palp: Yes Soft to palpation and Yes Tenderness to palpation present (GI) (appropriately tender around incision ) Auscultation: normal bowel sounds Other: fundus firm and below umbilicus Incision C/D/I Urinary Catheter: Urinary Catheter: urine clear Psych: Appearance: grossly normal Mental Status: mental status grossly normal Affect: normal affect
[2020-06-26] MEDS: LEVOTHYROXINE SODIUM 50 MCG TABLET PO (06:47)
[2020-06-26] MEDS: busPIRone HCL 10 MG TABLET PO ×2 (07:40→21:00)
[2020-06-26] MEDS: DOCUSATE SODIUM 100 MG CAPSULE PO ×2 (07:41→16:08)
[2020-06-26] MEDS: POLYSACCHARIDE IRON COMPLEX 150 MG CAPSULE PO ×2 (07:41→16:09)
[2020-06-26] MEDS: MULTIVIT/MIN/PREN/FOL AC/IRON TABLET 1 TAB PO (07:42)
[2020-06-26] MEDS: IBUPROFEN 600 MG TABLET PO ×3 (07:42→23:44)
[2020-06-26] MEDS: SIMETHICONE 80 MG TAB.CHEW PO ×2 (07:43→12:28)
[2020-06-26 09:30] VITALS: BP 110/64; PULSE 67; RESP 18; TEMP 36.6; O2SAT 97
--- NOTE | 2020-06-26 09:50 | WPDANLDPN2 ---
Anes-Prog Note L&D Date/Time: 06/26/20 09:50 Comfortable throughout: section Neuraxial method: spinal Epidural/Spinal procedure site: clean & non-tender Neuro status: Neuro function grossly intact. Cardiovascular status: normal Respiratory status: normal Airway patency: baseline Mental status: baseline Post-Op hydration status: normal Vital Signs: Last Vital Signs Temp 36.7 C 06/26/20 04:50 Pulse 76 06/26/20 04:50 Resp 16 06/26/20 04:50 BP 121/76 06/26/20 04:50 Pulse Ox 100 06/25/20 17:30 I/O: Intake & Output 06/25/20 06/26/20 06/26/20 23:59 07:59 15:59 Intake Total 1000 Output Total 125 1800 Balance -125 -800 Post-procedural complaints: none Patient feedback: Patient satisfied with anesthetic care.
--- NOTE | 2020-06-26 09:50 | WPDANLDNPN2 ---
Anes-Prog Note L&D-Neuraxial Date/Time: 06/26/20 09:50 Neuraxial medications: intrathecal PF morphine Opiod-related complaints: none Patient feedback: Patient satisfied with post-operative pain management.
[2020-06-26 13:00] VITALS: BP 113/77; PULSE 97; RESP 18; TEMP 36.5; O2SAT 98
[2020-06-26 18:50] VITALS: BP 122/76; PULSE 75; RESP 16; TEMP 36.7
[2020-06-27] MEDS: LEVOTHYROXINE SODIUM 50 MCG TABLET PO (06:58)
[2020-06-27] MEDS: IBUPROFEN 600 MG TABLET PO (06:59)
[2020-06-27 07:00] VITALS: BP 119/72; PULSE 71; RESP 18; TEMP 36.8; O2SAT 94
[2020-06-27] MEDS: SIMETHICONE 80 MG TAB.CHEW PO (07:01)
--- NOTE | 2020-06-27 07:37 | PM.OBDSVD ---
OB - DS: Summary OB Procedures : None OB Procedures Intrapartum: OB Procedures: : None Peripartum Data Delivery Method: Section Procedures: Procedures Operation Date: 06/25/20 12:00 Actual Procedures Side Surgeon p Section Hakan Gaming MD complications: none Status at Discharge Functional status at discharge: independent ambulation Overall status at discharge: patient is progressing back to baseline Time Spent with Patient Time attestation: Total time spent providing and/or coordinating discharge services: Time spent: Less than 30 minutes Exam Const: General: comfortable and no acute distress Resp: Effort & Inspection: normal respiratory effort Auscultation: clear to auscultation bilaterally Cardio: Rate: regular rate GI: Inspection: non-distended GI Palp: Yes Soft to palpation, No Firmness to palpation present (GI), Yes Tenderness to palpation present (GI) (mild tenderness over incision ) and No Guarding due to palpation present (GI) Auscultation: normal bowel sounds Psych: Appearance: grossly normal Mental Status: mental status grossly normal Discharge Plan Discharge Discharging Clinician: Brian Pearce Patient Disposition: Home, Self-Care Activity: as tolerated and pelvic rest Diet: regular Discharge Instructions: call or return for temperature >100.4, bleeding >2 pads/hr for 2 hrs, pain not controlled with medications, signs/symptoms of mastitis Patient Instructions: Antibiotic Form, (DC) Stand Alone Forms: General Discharge Information Follow-up/Referrals: Hakan Gaming MD [Physician] - Discharge Medications: New hydrocodone-acetaminophen 5-325 mg Tablet 1 tab PO Q3H PRN (Reason: Moderate Pain (4-6)) Qty: 28 RF: 0 ibuprofen 600 mg Tablet 600 mg PO Q6H PRN (Reason: Cramping) Qty: 30 RF: 0 docusate sodium 100 mg Capsule 100 mg PO BID Qty: 30 RF: 0 Continued buspirone 5 mg tablet 10 mg PO BID RF: 0 levothyroxine 50 mcg tablet 50 mcg PO DAILY RF: 0 PNV cmb#95-ferrous fumarate-FA [] 28 mg iron- 800 mcg Tablet 1 tablet PO DAILY RF: 0 Discontinued cholecalciferol (vitamin D3) [Vitamin D3] 50 mcg (2,000 unit) Tablet 50 mcg PO DAILY RF: 0 Date of admission: 06/23/20 18:01 Primary Care Provider: PHYSICIAN,LIQUIFIED NATURAL GAS SPECIALIST Admitting Provider: Hakan Gaming Attending physician on admission: Hakan Gaming
[2020-06-27] MEDS: MULTIVIT/MIN/PREN/FOL AC/IRON TABLET 1 TAB PO (10:57)
[2020-06-27] MEDS: DOCUSATE SODIUM 100 MG CAPSULE PO (10:57)
[2020-06-27] MEDS: busPIRone HCL 10 MG TABLET PO (10:57)
[2020-06-27] MEDS: POLYSACCHARIDE IRON COMPLEX 150 MG CAPSULE PO (10:57)
--- NOTE | 2020-06-27 11:18 | PC.NURSE ---
Patient viewed the discharge video Mother & Baby Care, The First Two Weeks . Patient was given the opportunity and encouraged to ask questions. Patient verbalized understanding of information shared and has been given the mother/baby guide for home reference.
[2020-06-28 11:13] VITALS: BP 121/71; PULSE 72; RESP 20; TEMP 36.7; O2SAT 100
== END 2020-06-27 12:40 | disposition home or self-care (01) | DRG 788 ==
LOC: ANHLDR 06-24 23:08 → ANHOB2 06-27 07:39 → ANHLDR 06-28 11:10 → ANHOB2 06-28 11:10
PROVIDERS: Admitting Provider Obstetrics & Gynecology; Visit Provider Student in an Organized Health Care Education/Training Program
PROC: 10D00Z1 Extraction of Products of Conception, Low, Open Approach (ICD-10-PCS; CPT 59514; principal; 2020-06-25 12:00)
DX: O41.03X0 Oligohydramnios, third trimester, not applicable or unspecified (principal); O99.824 Streptococcus B carrier state complicating childbirth; O62.1 Secondary uterine inertia; Z3A.38 38 weeks gestation of pregnancy; Z37.0 Single live birth; O99.214 Obesity complicating childbirth; Z87.891 Personal history of nicotine dependence; O99.284 Endocrine, nutritional and metabolic diseases complicating childbirth; E03.9 Hypothyroidism, unspecified; E66.01 Morbid (severe) obesity due to excess calories
CPT/HCPCS: 36415; 80053; 84550; 85025; 86592; 86850; 86900; 86901; A9270; J0131; J0290; J2274; J2370; J2405; J2590; J7120

== ENCOUNTER 2022-03-26 10:01 | Emergency (ER) | payer BC, OTHER, SELFPAY ==
--- NOTE | 2022-03-26 10:04 | ED.GENADULT ---
HPI - General Adult General Chief complaint: Upper Respiratory Infection Stated complaint: lt ear discomfort,cough,sinus pressure Time Seen by Provider: 03/26/22 10:04 Source: patient Mode of arrival: ambulatory Limitations: no limitations History of Present Illness HPI narrative: 26-year-old female patient presents to the [facility] with complaints of cold symptoms for the last 4 days with pain and muffled hearing to the left ear. Patient states she has been taking some oixs-hqh-wjqvlni Sudafed, Mucinex, Felicia[place] cold and flu. Patient states she has vaccinated against COVID and has tested herself at home twice and both can have come up negative. Denies any fevers. Patient states she has had a cough but denies shortness of breath or chest pain. Related Data Home Medications Medication Instructions Recorded Confirmed buspirone 10 mg PO BID 02/10/20 03/26/22 duloxetine 60 mg PO DAILY 03/26/22 03/26/22 levonorgestrel [Mirena] 1 device INTRAUTERINE ONCE 03/26/22 03/26/22 Allergies Allergy/AdvReac Type Severity Reaction Status Date / Time prochlorperazine Allergy Severe MUSCLE Verified 03/26/22 10:18 DYSTONIA Review of Systems Review of Systems: CONSTITUTIONAL: Denies fever, chills, or sweats. EYES: Denies visual changes, redness, or discharge. ENT: Positive rhinorrhea, congestion, denies sore throat, positive otalgia. CARDIOVASCULAR: Denies chest pain, palpitations, or edema. RESPIRATORY: Positive cough, denies dyspnea. GASTROINTESTINAL: Denies abdominal pain, nausea, vomiting, or diarrhea. GENITOURINARY: Denies dysuria or hematuria. SKIN: Denies rash or itching. MUSCULOSKELETAL: Denies back pain, joint pain, or myalgia. NEUROLOGIC: Denies headache, numbness, or weakness. PSYCHIATRIC: Denies anxiety or depression. [facility] Past Medical History Medical History Herniated disc Hypothyroidism affecting Morbid obesity with BMI of 40.0-44.9, adult Family History Family History Mother Diabetes mellitus Alcohol abuse Father Hypertension Grandparent Colon cancer Breast cancer Pancreatic cancer Sibling SIDS (sudden syndrome) Social History Social History Years smoked: 10 Smoking status: Former smoker Substance use: never Spiritual care concerns: No Comments At the time of my signature I agree with nursing past medical history, surgical, social, and family history. There is no relevant family history pertinent to the presenting complaint. Exam Narrative: GENERAL: Well-appearing, well-nourished, and in no acute distress. HEAD: Normocephalic, atraumatic. EYES: PERRLA and EOMI. ENT: Nares with erythema and edema noted bilaterally, no rhinorrhea or epistaxis. Mucous membranes moist. Posterior pharynx with no erythema, tonsillar lodgment noted. Bilateral TMs with erythema. No foreign bodies noted. No fluid behind the eardrum is noted at this time. NECK: Supple. No lymphadenopathy CHEST: Clear to auscultation. No respiratory distress. Patient able talk in clear complete sentences but does have a deep cough noted during exam. HEART: Regular rate and rhythm. No murmur heard. Normal peripheral pulses. ABDOMEN: Soft, nontender, nondistended, normal active bowel sounds. EXTREMITIES: Normal range of motion. No edema. SKIN: Warm, dry, no rash. NEURO: No focal deficits. Alert and oriented x3. Course Course Level of Care: Express Care Visit Vital Signs Vital signs: Vital Signs Temperature 36.8 C 03/26/22 10:12 Pulse Rate 96 03/26/22 10:12 Respiratory Rate 18 03/26/22 10:12 Blood Pressure 122/77 03/26/22 10:12 Pulse Oximetry 100 03/26/22 10:12 Temperature 36.8 C 03/26/22 10:12 Pulse Rate 96 03/26/22 10:12 Respiratory Rate 18 03/26/22 10:12 Blood Pressure 122/77 03/26/22 10:12 Pul
[2022-03-26 10:12] VITALS: BP 122/77; PULSE 96; RESP 18; TEMP 36.8; O2SAT 100
== END 2022-03-26 10:27 | disposition home or self-care (01) ==
PROVIDERS: Emergency Provider Nurse Practitioner Family; PCP Physician Assistant
DX: H66.93 Otitis media, unspecified, bilateral (principal); J06.9 Acute upper respiratory infection, unspecified; Z87.891 Personal history of nicotine dependence
CPT/HCPCS: 99213; G0463

== ENCOUNTER 2024-09-09 15:27 | Emergency (ER) | payer BC, OTHER, SELFPAY ==
[2024-09-09 15:37] VITALS: BP 121/65; PULSE 104; RESP 16; TEMP 36.2; O2SAT 98
--- NOTE | 2024-09-09 15:41 | ED.URI ---
HPI - URI/Sore Throat General Chief Complaint: Upper Respiratory Infection Stated Complaint: fever/ head and body pain / congestion Time Seen by Provider: 09/09/24 15:52 Source: patient and RN notes reviewed Mode of arrival: ambulatory Limitations: no limitations History of Present Illness HPI Narrative: 38-year-old female presents with concern for fever, headache, body aches, congestion that started yesterday. She did reports her son had similar symptoms last week. She has been taking Felicia-[place] without relief MD elicited complaint: fever Related Data Home Medications Medication Instructions Recorded Confirmed duloxetine 60 mg capsule,delayed 60 mg PO DAILY 03/26/22 09/09/24 release levonorgestrel 21 mcg/24 hr (up to 1 device intrauterine ONCE 03/26/22 09/09/24 8 years) 52 mg intrauterine device (Mirena) Allergies Allergy/AdvReac Type Severity Reaction Status Date / Time prochlorperazine Allergy Severe MUSCLE Verified 06/30/24 08:20 DYSTONIA Review of Systems Review of Systems: CONSTITUTIONAL: Report malaise, fever. EYES: Denies visual changes, redness, or discharge. ENT: Reports rhinorrhea, congestion CARDIOVASCULAR: Denies chest pain, palpitations, or edema. RESPIRATORY: Reports cough. Denies dyspnea. GASTROINTESTINAL: Denies abdominal pain, nausea, vomiting, diarrhea SKIN: Denies rash or itching. MUSCULOSKELETAL: Reports myalgia. NEUROLOGIC: Reports headache. All systems reviewed & are unremarkable except as noted in HPI and below PMFSH Past Medical History Medical History BMI 32.0-32.9,adult Herniated disc Hypothyroidism affecting Morbid obesity with BMI of 40.0-44.9, adult Family History Family History Mother Diabetes mellitus Alcohol abuse Father Hypertension Grandparent Colon cancer Breast cancer Pancreatic cancer Sibling SIDS (sudden infant syndrome) Social History Social History Years smoked: 10 Smoking status: Former smoker Second hand tobacco smoke exposure: No Alcohol intake: current Substance use: never Substance use type: does not use Lack of Transportation: No Lack of Food: Never True Current Housing: I Have Housing Concerned About Future Housing: No Difficulty Paying Gas/Electric Bills: No Difficulty Paying for Meds: No Currently Unemployed: No Education: Bachelor's Degree Difficulty w/ Childcare or Family Care: No Living arrangements: with family Occupation/Education: occupation Additional occupation/education comments: [employer] Gender identity (if verbalized by the patient): Female Spiritual care concerns: No Comments At time of signature, agree with nursing past medical, surgical, social and family history. There is no relevant family history pertinent to the presenting complaint Exam Narrative: GENERAL: Nontoxic-appearing, well-nourished, and in no acute distress. HEAD: Normocephalic EYES: PERRLA, conjunctivae clear ENT: Nares clear. Mucous membranes moist. TM pearly daily with sharp light reflex bilaterally; no tragal tenderness. Oropharynx not erythematous without lesions. Tonsils not enlarged and without exudate, no drooling, no hoarseness, no trismus, uvula midline. NECK: Supple. No lymphadenopathy CHEST: Clear to auscultation, breath sounds equal. No wheezing, rhonchi, rales, or stridor. No respiratory distress, speaks in full sentences. HEART: Regular rate and rhythm. No murmur heard. SKIN: Warm, dry, no rash. NEURO: Alert and oriented x3. PSYCH: Normal mood and affect Course Course Emergency Course: Patient is aware of diagnosis, understands and agrees to treatment plan. Anticipatory guidance given. Patient agrees to follow-up as directed and is aware of reasons to seek care at the emergency departme
[2024-09-09 16:10] LABS: EDCOVIDSCREEN Positive (Negative); EDINFLUASCREEN Negative (Negative); EDINFLUBSCREEN Negative (Negative)
== END 2024-09-09 16:12 | disposition home or self-care (01) ==
PROVIDERS: Emergency Provider Nurse Practitioner; PCP Family Medicine
DX: U07.1 COVID-19 (principal); Z87.891 Personal history of nicotine dependence; E66.01 Morbid (severe) obesity due to excess calories; Z68.32 Body mass index [BMI] 32.0-32.9, adult
CPT/HCPCS: 87426; 87804; 99213; G0463

== ENCOUNTER 2025-05-11 08:04 | Emergency (ER) | payer BC, OTHER, SELFPAY ==
--- NOTE | ~2025-05-11 | XR_ITS ---
XR chest 2V Ordering provider: Vivek Barfield APRN History: 39 years Female with . cough, fevers 2 days former smoker hx bronchitis . Comparison: None. FINDINGS: MEDIASTINUM: The cardiac silhouette is not enlarged. LUNGS: No infiltrates, effusions or pneumothorax. OTHER: No free air under the diaphragm. IMPRESSION: No acute cardiopulmonary pathology. Reviewed, dictated and finalized at location A.
--- OUTSIDE RECORDS SUMMARY | 2025-05-11 08:19 | XMS_ITS | Encounter Summary ---
Author Organization [facility] Address [address] [place] [address] Care Team Providers Care Parts Analyst Name Role Phone Herber Mcqueen MD Primary Care Provider [phone] Encounter Details Date Type Department Care Team (Late st Contact Info) Description 02/18/2021 Lab Requisition [facility] Derm[facility] Lab [address] [place] [id number] Arthur Umana MD [id number] [facility] [facility] [place] [place] [address] Social History Tobacco Use Types Packs/Day Years Used Date Smoking Tobacco: Never Assessed Comments Unknown Sex and Gender Information Value Date Recorded Sex Assigned at Not on file Legal Sex Female 11:21 AM CDT Gender Identity Not on file Sexual Orientation Not on file documented as of this encounter Plan of Treatment Not on file documented as of this encounter Procedures Procedure Name Priority Date/Time Associated Diagnosis Comments DERMATOPATHOLOGY Routine 02/16/2021 3:33 AM CDT documented in this encounter Results * DERMATOPATHOLOGY (02/16/2021 3:33 AM CDT) Case Report Dermatopathology Report Case: [id number] Authorizing Provider: Arthur Umana MD Collected: 02/16/2021 03:33 AM Ordering Location: [facility] Care DermPath Lab Received: 02/18/2021 06:22 AM Pathologist: Belle Ramsay MD Specimen: Skin, right buttock 2:14 PM CDT DERMATOPATHOLOGY LABORATORY Final Diagnosis Specimen A. 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 Path# [id number]. Check margins. 1 2:14 PM CDT DERMATOPATHOLOGY LABORATORY Gross Description Specimen A: Received is one formalin filled container labeled with the patient's name and designated right buttock. The specimen consists of a non-oriented ellipse of skin measuring [id number]. The epidermal surface consists of centrally located 12x8mm previous biopsy site. The margin is inked green. The 12 o'clock and 6 o'clock tips are submitted in cassette 1. The remainder of the ellipse is serially sectioned and submitted in cassette 2-3. Jar 0. 1 2:14 PM CDT DERMATOPATHOLOGY LABORATORY Microscopic Description Specimen A. SKIN, right buttock: There are nests of cytologically bland melanocytes within the dermis. Some of these melanocytes are concentrated around blood vessels and adnexal structures. This lesion is present at one lateral margin of the specimen in blocks 2 and 3. 1 2:14 PM CDT DERMATOPATHOLOGY LABORATORY Disclaimer An external and internal positive and negative controls are appropriate for the histochemical, immunohistochemical and immunofluorescence stain(s) in this case (if any), except where stated explicitly. The performance characteristics of the stain(s) cited in this report were developed and its performance characteristic determined by the Dermatopathology Laboratory at [facility], directed by Dr. Marito Ramsay. These tests need not be, and therefore are not, approved by the [place] Food and Drug Administration. The tests are used for clinical purposes. Billing Codes Specimen Charges Stain Charges 56885 1 1 2:14 PM CDT DERMATOPATHOLOGY LABORATORY Embedded Images 1 2:14 PM CDT DERMATOPATHOLOGY LABORATORY Pathology/Cytolo gy TISSUE SPECIMEN FROM SKIN / Unknown 02/16/2021 3:33 AM CDT 02/18/2021 6:22 AM CDT us Arthur Umana MD LAB - PATHOLOGY/CYTOLOGY ORDER MARIANNA Final Result DERMATOPATHOLOGY LABORATORY [facility] - Department of Dermatology [facility] Medicine [address] [place] [address], [address] [phone] documented in this encounter Visit Diagnoses Not on filedocumented in this encounter Care Teams Parts Analyst Relationship Specialty Start Date End Date Herber Mcqueen MD [address] [place] [address] [address] [place] [id number] PCP - General 04/02/18 documented as of this encounter
--- OUTSIDE RECORDS SUMMARY | 2025-05-11 08:19 | XMS_ITS | Encounter Summary ---
Author Organization [facility] Address [address] [place] [address] Care Team Providers Care Diamond Cleaner Name Role Phone Herber Mcqueen MD Primary Care Provider [phone]- [phone] Encounter Details Date Type Department Care Team (Late st Contact Info) Description 11/02/2023 Lab Requisition [facility] - DermPath Lab [address] [place] [id number] Arthur Umana MD [address] [facility] [place] [address] Social History Tobacco Use Types Packs/Day Years [...] Priority Date/Time Associated Diagnosis Comments DERMATOPATHOLOGY Routine 11/01/2023 3:33 AM COOLING MACHINE OPERATOR documented in this encounter Results * DERMATOPATHOLOGY (11/01/2023 3:33 AM COOLING MACHINE OPERATOR) Case Report Dermatopathology Report Case: [id number] Authorizing Provider: Arthur Umana MD Collected: 11/01/2023 03:33 AM Ordering Location: [facility] DermPath Lab Received: 11/02/2023 09:21 AM Pathologist: Sandi Najera MD Specimens: A) - Skin, right thigh B) - Skin, right knee 1:22 PM [facility] Final Diagnosis Specimen A. SKIN, right thigh: DERMATOFIBROMA (D23.9) PRESENT AT MARGIN Specimen B. SKIN, right knee: DERMATOFIBROMA (D23.9) PRESENT AT MARGIN 3 1:22 PM [facility] at [address]2 COOLING MACHINE OPERATOR Clinical History A: DF Path# [id number] Check Margin B: DF Path# [id number] Check Margin 3 1:22 PM [facility] Gross Description Specimen A: Received is one formalin filled container labeled with the patient's name and designated right thigh. The specimen consists of a punch biopsy measuring 4x4x4 mm. Jar 0. Specimen B: Received is one formalin filled container labeled with the patient's name and designated right knee. The specimen consists of a punch biopsy measuring 4x4x3 mm. Jar 0. 3 1:22 PM [facility] Microscopic Description Specimen A. SKIN, right thigh: There is epidermal hyperplasia. Within the dermis, there are fibrohistiocytic cells in haphazard array among coarse collagen bundles. This lesion is present at the margin of the specimen. Specimen B. SKIN, right knee: There is epidermal hyperplasia. Within the dermis, there are fibrohistiocytic cells in haphazard array among coarse collagen bundles. This lesion is present at the margin of the specimen. 3 1:22 PM [facility] Disclaimer An external and internal positive and negative controls are appropriate for the histochemical, immunohistochemical and immunofluorescence stain(s) in this case (if any), except where stated explicitly. The performance characteristics of the stain(s) cited in this report were developed and its performance characteristic determined by the Dermatopathology Laboratory at [facility], directed by Dr. Marito Ramsay. These tests need not be, and therefore are not, approved by the [place] Food and Drug Administration. The tests are used for clinical purposes. Billing Codes Specimen Charges Stain Charges 75975 [id number] 1 1 3 1:22 PM [facility] Embedded Images 3 1:22 PM [facility] Pathology/Cytology TISSUE SPECIMEN FROM SKIN / Unknown 11/01/2023 3:33 AM COOLING MACHINE OPERATOR 11/02/2023 9:21 AM COOLING MACHINE OPERATOR Miscellaneous samples (specimen) TISSUE SPECIMEN FROM SKIN / Unknown 11/01/2023 3:33 AM COOLING MACHINE OPERATOR 11/02/2023 9:21 AM COOLING MACHINE OPERATOR us Arthur Umana MD LAB - PATHOLOGY/CYTOLOGY ORDER MARIANNA Final Result DERMATOPATHOLOGY LABORATORY [facility] - Department of Dermatology [facility] Medicine [address] [place] [address], [address] [phone] documented in this encounter Visit Diagnoses Not on filedocumented in this encounter Care Teams Diamond Cleaner Relationship Specialty Start Date End Date Herber Mcqueen MD [address] [place] [address] [address] [place] [address] PCP - General 04/02/18 documented as of this encounter
--- OUTSIDE RECORDS SUMMARY | 2025-05-11 08:19 | XMS_ITS | Clinical Summary ---
Author Organization [facility] [address] [facility] Address [address] [place] [address] Care Team Providers Care Assistant Program Manager Name Role Phone Isela Lino Primary Care Provider [phone]- [phone] Allergies Active Allergy Reactions Criticality Noted Date Comments Prochlorperazine Other (See comments),Headache Low dystonia Medications DULoxetine DR (CYMBALTA) 60 mg capsule Take 1 capsule (60 mg total) by mouth daily 30 capsule 5 0 Active busPIRone (BUSPAR) 10 mg tablet Take 1 tablet (10 mg total) by mouth 2 (two) times a day 60 tablet 3 0 Active ascorbic acid, vitamin C, (VITAMIN C) 500 mg capsule, extended release CR capsule 0 Active cholecalciferol (VITAMIN D-3) 5,000 unit capsule 9 Active levonorgestreL (MIRENA) IUD 0 Active aa-uh-bpxl-FA-Ca carb-vit K (Women's Multivitamin) 18 mg-400 mcg- 500 mg-50 mcg tablet 8 Active ALPRAZolam (XANAX) 0.5 mg tablet Take 1 tablet (0.5 mg total) by mouth daily as needed for anxiety 20 tablet 2 Active fluticasone propionate (FLONASE) 50 mcg/actuation nasal sprayIndications:Ac santa nasopharyngitis SPRAY 2 SPRAYS INTO EACH NOSTRIL EVERY DAY 16 mL 2 Active cetirizine (ZyrTEC) 10 mg tablet Take 1 tablet (10 mg total) by mouth daily as needed for allergies 0 2 Active semaglutide (OZEMPIC) 1 mg/dose (4 mg/3 mL) pen injector injectionIndication s:Weight Loss Management for Obese Patient (BMI >= 30) Inject 1 mg under the skin every 7 days 3 mL 3 Active Active Problems Problem Noted Date Diagnosed Date BMI 37.0-37.9, adult 12/22/2022 Assessment & Plan (12/22/2022 12:58 PM MANAGER LEGAL): Patient tolerating semaglutide well. Currently at 0.5 mg. Feels like she is ready to increase to 1 mg with the next fill. Encouraged to continue monitoring her intake as well as increasing her exercise. She is becoming more aware of becoming full earlier and requiring less food. Encouraged to get her labs done so we can confirms her liver and kidneys are tolerating the new medication. She is in agreement with the plan. Follow-up in about 3 months BMI 38.0-38.9,adult 11/09/2022 Assessment & Plan (11/09/2022 7:43 AM MANAGER LEGAL): Obesity is unchanged. Discussed the patient's BMI. The BMI is above average. BMI management plan is completed. BMI Follow-up includes: nutrition counseling, exercise counseling and education provided. Morbid obesity 11/09/2022 Assessment & Plan (12/22/2022 12:58 PM MANAGER LEGAL): Patient tolerating semaglutide well. Currently at 0.5 mg. Feels like she is ready to increase to 1 mg with the next fill. Encouraged to continue monitoring her intake as well as increasing her exercise. She is becoming more aware of becoming full earlier and requiring less food. Encouraged to get her labs done so we can confirms her liver and kidneys are tolerating the new medication. She is in agreement with the plan. Follow-up in about 3 months Assessment & Plan (11/09/2022 8:58 PM MANAGER LEGAL): This is a significant, separately identifiable problem that was evaluated and managed on the same day as the wellness exam Obesity is unchanged. Discussed the patient's BMI. The BMI is above average. BMI management plan is completed. BMI Follow-up includes: nutrition counseling, exercise counseling and education provided. Patient has an obesity-related condition (not limited to: hypertension, obstructive sleep apnea, osteoarthritis, hyperlipidemia, diabetes, etc.). Therefore, morbid obesity may be documented for patients with a BMI between 35.00-39.99. Discussed weight management issues for approximately 15 minutes. Encouraged to log all food/drink/intake to determine daily caloric intake. Reviewed 3500 calories = 1# of weight so have to register a deficit to lose. Discussed obtaining this by decreasing daily caloric intake and or increasing exercise. Discussed decreasing carbs. Maintaining enough protein. Monitor/be aware of serving size. Increase water. Avoid sugar sweetened drinks. Patient inquires today about starting a diet medication. Had been following with a weight loss program and [facility] has tried phentermine and they Vyvanse and states she does not like how they make her feel. She inquires today about Mounjaro or Ozempic. States friends are on it there all losing weight she wants to do it too. Discussed at length her dietary intake and she states she was encouraged to increase protein 200 or more g a day and keep her calories at 13-1400 calories to lose weight through the weight loss program and [facility]. She states she can not do this could she snacks all the time and chooses carb snacks Theo popcorns and chips. She states she is busy with working from home and too busy to walker be active. Reviewed risks benefits alternatives side effects and proper use of Mounjaroand Ozempic. She wants an Rx for Ozempic that states that her primary insurance will not cover but her secondary [facility]. Reviewed with patient that currently on jar is not being cleared for use with weight loss since it is not FDA approved. White go V is the product that is usually covered for weight loss so I would willing to send the semuglutide. History of COVID-19 11/09/2022 Overview (11/09/2022): 10/2022 Flu vaccine need 11/09/2022 Assessment & Plan (11/09/2022 8:58 PM MANAGER LEGAL): Updated in office today Annual physical exam 11/09/2022 Assessment & Plan (11/09/2022 8:59 PM MANAGER LEGAL): Encouraged healthy lifestyle, good nutrition and exercise. Encouraged Calcium and Vitamin D and weight bearing exercise for bone health. Reviewed immunizations Reviewed age appropirate screenings. Otalgia 06/22/2022 Assessment & Plan (06/22/2022 8:13 AM CDT): We discussed that unfortunately this is a technically difficult diagnosis over video. We will initiate steroids and antibiotics, however she was advised to report to us or urgent care if the symptoms are not improving over the next week. She will continue using Tylenol or ibuprofen every 6 hours as needed for fever or pain. Depressive disorder 06/21/2022 Gastroesophageal reflux disease 06/21/2022 Kidney stone 06/21/2022 Seasonal allergies 06/21/2022 Viral disease 06/21/2022 Impetigo 09/22/2021 Assessment & Plan (09/22/2021 6:01 PM CDT): Advised on wound care Advised f/u in next week if not improving, sooner if worsening Dystrophia unguium 02/07/2021 Foot callus 02/07/2021 Complaint of nasal congestion 11/22/2020 Assessment & Plan (11/22/2020 9:57 PM MANAGER LEGAL): Check COVID test thru [facility] collection site in [place]. Treat sxs with Tylenol, Cough/cold medication otc and add VitD 5,000IU daily and Zinc 50mg daily. Recommend to quarantine until results are available. If negative, may return to normal activities. If positive, quarantine for 14 days from start of sxs. Monitor sxs and call or go to the ER if has any of the following: --trouble breathing --persistent pain or pressure in the chest --new confusion --inability to wake or stay awake -- bluish lips or face If patient has been in close contact with anyone, they should be notified and instructed to quarantine per CDC guidelines for 14 days after last exposure to the positive COVID patient and monitor closely for symptoms of COVID. If they appear they should be tested. Close contact includes: --You were within 6 feet of someone who has COVID-19 for a total of 15 minutes or more --You provided care at home to someone who is sick with COVID-19 --You had direct physical contact with the person (hugged or kissed them) --You shared eating or drinking utensils --They sneezed, coughed, or somehow got respiratory droplets on you Additional Steps to avoid exposure/spread include: Avoid crowded places where close contact with others may occur, such as shopping centers, movie theaters, dormitories, or stadiums. Avoid transit where close contact with others may occur, such as planes, trains, and buses. Maintain a distance of approximately 6 feet from other people whenever possible (spacing out if you are in a line, leaving 2 seats in between others at a waiting room when possible). Wash your hands with soap and water often. If needed, use a hand erp pm that contains at least 60% alcohol. Clean and disinfect frequently touched surfaces such as tables, doorknobs, countertops, etc daily. Avoid touching your eyes, nose, and mouth when possible. Acute intractable headache 11/01/2020 Assessment & Plan (11/01/2020 11:41 AM MANAGER LEGAL): Will send patient to [place] for Covid-19 testing. The patient was advised to quarantine at least 10 days from symptom onset, but this determination will depend on result of testing. They were advised to contact us in the next 72h if they have not heard results of testing. They were advised to report to the ER if worsening. Anxiety state 12/18/2016 Assessment & Plan (11/09/2022 8:51 PM MANAGER LEGAL): Continue to anxiety. Home Care Coordinator has her on Cymbalta and BuSpar. Xanax is still on her list for as needed. Feels like it is helping but still anxious in the office today. Will continue to monitor as she does not want to adjust the medication at this point. Assessment & Plan (06/22/2022 8:13 AM CDT): We will refill her Xanax at this time. Resolved Problems Problem Noted Date Diagnosed Date Resolved Date Acute bronchitis 06/21/2022 11/09/2022 Upper respiratory infection 06/21/2022 11/09/2022 Acute non-recurrent pansinusitis 09/22/2021 11/09/2022 Assessment & Plan (09/22/2021 6:02 PM CDT): Advised increased fluids, rest Advised f/u in 1w if not improving, sooner if worsening We discussed postponing flu and covid booster due to antibiotic utilization and illness x approximately 1w. BMI 35.0-35.9,adult 12/19/2016 11/09/20 22 Obesity (BMI 30-39.9) 12/19/20162021 Immunizations Immunization Administration Dates Next Due Influenza, Quadrivalent, Spl it, Preservative Free, Intramuscular 11/09/2022,10/30/2018 Influenza, Unspecified 12/27/2021(Deferr ed: Patient Refused),08/23/2020 Moderna SARS-CoV-2 Monovalen t Vaccination (12+ YRS) 10/21/2021 Tdap 10/26/2020 Surgical History Surgery Date Site/Laterality Comments SECTION NASAL MASS EXCISION 05/11/2022 N/A 5x3x1 Medical History Medical History Date Comments Anxiety Depression Allergic Family History Medical History Relation Name Comments Hypertension Father Diabetes Mother Relation Name Status Comments Father Alive Mother Social History Tobacco Use Types Packs/Day Years Used Date Smoking Tobacco: Never Tobacco Cessation:Counseling Given: Not Answered Alcohol Use Standard Drinks/Week Comments Yes 0 (1 standard drink = 0.6 oz pur e alcohol) AUDIT-C Answer Date Recorded Q1: How often do you have a drink containing alcohol? Never 12/21/2022 Q2: How many drinks containi ng alcohol do you have on a typical day when you are drinking? Patient does not drink Q3: How often do you have si x or more drinks on one occasion? Never 12/21/2022 PHQ-2 Answer Date Recorded PHQ-2 Total Score (If total score is 3 or more points, staff should administer the PHQ-9) 0 12/21/2022 Personal Safety Answer Date Recorded Getting School Help Needed Not on file 11/10 Comments Unknown Sex and Gender Information Value Date Recorded Sex Assigned at Not on file Legal Sex Female 6:54 PM MANAGER LEGAL Gender Identity Not on file Sexual Orientation Not on file Obstetrics History Last Filed Vital Signs Vital Sign Reading Time Taken Comments Blood Pressure 112/80 11/09/2022 7:41 AM MANAGER LEGAL Pulse 76 11/09/2022 7:41 AM MANAGER LEGAL Temperature 37 C (98.6 F) 11/09/2022 7:41 AM MANAGER LEGAL Respiratory Rate 16 05/02/2022 8:34 AM CDT Oxygen Saturation 97% 11/09/2022 7:41 AM MANAGER LEGAL Inhaled Oxygen Concentration - - Weight 108.9 kg (240 lb) 12/21/2022 10:14 AM MANAGER LEGAL Height 170.2 cm (5' 7) 12/21/2022 10:14 AM MANAGER LEGAL Body Mass Index 37.59 12/21/2022 10:14 AM MANAGER LEGAL Plan of Treatment Health Maintenance Due Date Last Done Comments Cervical Cancer Screening 1987 Hepatitis C Screening 1987 Varicella Vaccines (1 of 2 - 13+ 2-dose series) 2000 Hepatitis B Screening 2005 Regular Well Visit/Exam 18-64 11/09/2023 11/09/2022 Depression Screening 12/21/2023 12/21/2022, 06/21/2022, 09/22/2021, Additional history exists Covid-19 Vaccine (2023- season) 2024 10/21/2021 Influenza Vaccine (Season Ended) 2025 11/09/2022, 08/23/2020, 10/30/2018 DTaP/Tdap/Td Vaccine (2 - Td or Tdap) 10/26/2030 10/26/2020 HPV Vaccines Aged Out No longer eligi ble based on patient's age to complete this topic Pneumococcal vaccine <65 Aged Out No longer eligible based on patient's age to complete this topic Insurance [facility] Care Teams Assistant Program Manager Relationship Specialty Start Date End Date Isela Lino PA [address] [facility] [address] [place] [address] PCP - General Internal Medicine 11/01/20
--- OUTSIDE RECORDS SUMMARY | 2025-05-11 08:19 | XMS_ITS | Referral Summary ---
Author Organization [facility] [address] [facility] Address [address] [place] [address] Care Team Providers Care Political Consultant Name Role Phone Isela Lino Primary Care Provider +1- [phone] Allergies Active Allergy Reactions Criticality Noted Date [...] 9 Active levonorgestreL (MIRENA) IUD 0 Active hk-yg-ecgn-FA-Ca carb-vit K (Women's Multivitamin) 18 mg-400 mcg- [...] 12/22/2022 Assessment & Plan (12/22/2022 12:58 PM ASSET AVAILABILITY LEADER): Patient tolerating semaglutide well. Currently at 0.5 [...] 11/09/2022 Assessment & Plan (11/09/2022 7:43 AM ASSET AVAILABILITY LEADER): Obesity is unchanged. Discussed the patient's BMI. The BMI is above average. BMI management plan is completed. BMI Follow-up includes: nutrition counseling, exercise counseling and education provided. Morbid obesity 11/09/2022 Assessment & Plan (12/22/2022 12:58 PM ASSET AVAILABILITY LEADER): Patient tolerating semaglutide well. Currently at 0.5 [...] months Assessment & Plan (11/09/2022 8:58 PM ASSET AVAILABILITY LEADER): This is a significant, separately identifiable problem [...] 11/09/2022 Assessment & Plan (11/09/2022 8:58 PM ASSET AVAILABILITY LEADER): Updated in office today Annual physical exam 11/09/2022 Assessment & Plan (11/09/2022 8:59 PM ASSET AVAILABILITY LEADER): Encouraged healthy lifestyle, good nutrition and exercise. [...] 11/22/2020 Assessment & Plan (11/22/2020 9:57 PM ASSET AVAILABILITY LEADER): Check COVID test thru [facility] collection site in [place]. Treat sxs with Tylenol, Cough/cold medication otc [...] water often. If needed, use a hand helpdesk technician that contains at least 60% alcohol. Clean and disinfect frequently touched surfaces such as tables, doorknobs, countertops, etc daily. Avoid touching your eyes, nose, and mouth when possible. Acute intractable headache 11/01/2020 Assessment & Plan (11/01/2020 11:41 AM ASSET AVAILABILITY LEADER): Will send patient to [place] for Covid-19 testing. The patient was advised to quarantine at least 10 days from symptom onset, but this determination will depend on result of testing. They were advised to contact us in the next 72h if they have not heard results of testing. They were advised to report to the ER if worsening. Anxiety state 12/18/2016 Assessment & Plan (11/09/2022 8:51 PM ASSET AVAILABILITY LEADER): Continue to anxiety. Garbage Collector Driver has her on Cymbalta and BuSpar. Xanax [...] t Vaccination (12+ YRS) 10/21/2021 Tdap 10/26/2020 Social History Tobacco Use Types Packs/Day Years [...] on file Legal Sex Female 6:54 PM ASSET AVAILABILITY LEADER Gender Identity Not on file Sexual Orientation Not on file Last Filed Vital Signs Vital Sign Reading Time Taken Comments Blood Pressure 112/80 11/09/2022 7:41 AM ASSET AVAILABILITY LEADER Pulse 76 11/09/2022 7:41 AM ASSET AVAILABILITY LEADER Temperature 37 C (98.6 F) 11/09/2022 7:41 AM ASSET AVAILABILITY LEADER Respiratory Rate 16 05/02/2022 8:34 AM CDT Oxygen Saturation 97% 11/09/2022 7:41 AM ASSET AVAILABILITY LEADER Inhaled Oxygen Concentration - - Weight 108.9 kg (240 lb) 12/21/2022 10:14 AM ASSET AVAILABILITY LEADER Height 170.2 cm (5' 7) 12/21/2022 10:14 AM ASSET AVAILABILITY LEADER Body Mass Index 37.59 12/21/2022 10:14 AM ASSET AVAILABILITY LEADER Plan of Treatment Not on file Insurance [facility] O[facility] Care Teams Political Consultant Relationship Specialty Start Date End Date Isela Lino PA [address] [facility] [address] [place] [address] PCP - General Internal Medicine 11/01/20
--- OUTSIDE RECORDS SUMMARY | 2025-05-11 08:19 | XMS_ITS | Encounter Summary ---
Author Organization [facility] Address [address] [place] [address] Care Team Providers Care Thread Twister Name Role Phone Herber Mcqueen MD Primary Care Provider [phone] Encounter Details Date Type Department Care Team (Late st Contact Info) Description 02/01/2021 Lab Requisition [facility] DermPath Lab [address] [place] [id number] Arthur Umana MD [address] [place] [address] Social History Tobacco Use Types Packs/Day Years [...] Priority Date/Time Associated Diagnosis Comments DERMATOPATHOLOGY Routine 01/28/2021 3:33 AM SPEEDER FRAME TENDER documented in this encounter Results * DERMATOPATHOLOGY (01/28/2021 3:33 AM SPEEDER FRAME TENDER) Case Report Dermatopathology Report Case: [id number] Authorizing Provider: Arthur Umana MD Collected: 01/28/2021 03:33 AM Ordering Location: [facility] Care DermPath Lab Received: 02/01/2021 06:14 AM Pathologist: Mckayla Szymanski MD Specimens: A) - Skin, right buttock B) - Skin, left buttock C) - Skin, left back 1 5:20 PM [facility] DERMATOPATHOLOGY LABORATORY Final Diagnosis Specimen A. SKIN, right buttock: COMPOUND MELANOCYTIC NEVUS, IRRITATED (D22.5) Specimen B. SKIN, left buttock: LENTIGINOUS MELANOCYTIC NEVUS, COMPOUND TYPE, IRRITATED AND INFLAMED (COMPOUND MELANOCYTIC NEVUS WITH ARCHITECTURAL DISORDER) (D22.5) Specimen C. SKIN, left back: COMPOUND MELANOCYTIC NEVUS (D22.5) 1 5:20 PM [facility] DERMATOPATHOLOGY LABORATORY at [address] [employer] TENDER Clinical History A: Nevus vs MM. Path# [id number]. B: Nevus vs MM. Path# [id number]. C: Nevus R/O atypia. Path# [id number]. 1 5:20 PM [facility] DERMATOPATHOLOGY LABORATORY Gross Description Specimen A: Received is one formalin filled container labeled with the patient's name and designated right buttock. The specimen consists of a shave biopsy measuring [id number]. Jar 0. Specimen B: Received is one formalin filled container labeled with the patient's name and designated left buttock. The specimen consists of a shave biopsy measuring [id number]. Jar 0. Specimen C: Received is one formalin filled container labeled with the patient's name and designated left back. The specimen consists of a shave biopsy measuring [id number], bisected. Jar 0. 1 5:20 PM [facility] DERMATOPATHOLOGY LABORATORY Microscopic Description Specimen A. SKIN, right buttock: There is melanin pigment in the stratum corneum. There are nests of melanocytes at the dermal-epidermal junction and within the dermis. Specimen B. SKIN, left buttock: This is a compound nevus. There is melanin pigment in the stratum corneum. There is architectural disorder characterized by a lentiginous proliferation of melanocytes between irregular nests of cells along the dermal-epidermal junction, highlighted by MART-1/Melan-A immunohistochemical staining. There is underlying fibroplasia of the papillary dermis. The intradermal component is bland appearance and matures with depth. There is a lymphocytic infiltrate in the upper dermis. Original and deeper sections were reviewed. (Compound Tristen's Nevus or Compound Dysplastic Nevus) Specimen C. SKIN, left back: There are nests of melanocytes at the dermal-epidermal junction and within the dermis. 1 5:20 PM [employer] [employer] DERMATOPATHOLOGY LABORATORY Disclaimer An external and internal positive and negative controls are appropriate for the histochemical, immunohistochemical and immunofluorescence stain(s) in this case (if any), except where stated explicitly. The performance characteristics of the stain(s) cited in this report were developed and its performance characteristic determined by the Dermatopathology Laboratory at [facility], directed by Dr. Marito Ramsay. These tests need not be, and therefore are not, approved by the [place] Food and Drug Administration. The tests are used for clinical purposes. Billing Codes Specimen Charges Stain Charges 96332 15556 95804 1 1 1 44991 1 1 5:20 PM [employer] [employer] DERMATOPATHOLOGY LABORATORY Embedded Images 1 5:20 PM [employer] [employer] DERMATOPATHOLOGY LABORATORY Pathology/Cytology TISSUE SPECIMEN FROM SKIN / Unknown 01/28/2021 3:33 AM SPEEDER FRAME TENDER 02/01/2021 6:14 AM SPEEDER FRAME TENDER Miscellaneous samples (specimen) TISSUE SPECIMEN FROM SKIN / Unknown 01/28/2021 3:33 AM SPEEDER FRAME TENDER 02/01/2021 6:14 AM SPEEDER FRAME TENDER Miscellaneous samples (specimen) TISSUE SPECIMEN FROM SKIN / Unknown 01/28/2021 3:33 AM SPEEDER FRAME TENDER 02/01/2021 6:14 AM SPEEDER FRAME TENDER Arthur Umana MD LAB - PATHOLOGY/CYTOLOGY ORDER MARIANNA Final Result DERMATOPATHOLOGY LABORATORY [facility] - Department of Dermatology [facility] Medicine [address] [place] [address], [address] [phone] documented in this encounter Visit Diagnoses Not on filedocumented in this encounter Care Teams Thread Twister Relationship Specialty Start Date End Date Herber Mcqueen MD [address] [place] [address] [address] [place] [id number] PCP - General 04/02/18 documented as of this encounter
--- OUTSIDE RECORDS SUMMARY | 2025-05-11 08:19 | XMS_ITS | Clinical Summary ---
Author Organization [facility] Address [address] [place] [address] Care Team Providers Care Fruit Grader Operator Name Role Phone Herber Mcqueen MD Primary Care Provider [phone]- [phone] Source Comments [facility],non-owned Affiliates and Associated Physician Practices is amultiple site organization consisting of ambulatory clinics and hospital sitesin [place], [place], [place] and [place]. This disclosure is being madepursuant to the Care Everywhere program and may not contain all information available regarding this patient. Last updated 18.[facility] [employer] Social History Tobacco Use Types Packs/Day Years Used Date Smoking Tobacco: Never Assessed Comments Unknown Sex and Gender Information Value Date Recorded Sex Assigned at Not on file Legal Sex Female 11:21 AM CDT Gender Identity Not on file Sexual Orientation Not on file Plan of Treatment Health Maintenance Due Date Last Done Comments HIV SCREENING 2002 HEPATITIS C SCREENING 10/02/2005 DTAP/TDAP/TD VACCINES (1 - Tdap) 2006 HEPATITIS B VACCINE (1 of 3 - 19+ 3-dose series) 2006 PAP SMEAR 2008 COVID-19 VACCINE ( - 2023-2 5 season) 2024 DEPRESSION SCREENING 11/26/2024 INFLUENZA VACCINE (Season Ended) 2025 ZOSTER VACCINE (1 of 2) 2037 HIB VACCINE Aged Out No longer eligi ble based on patient's age to complete this topic HPV VACCINE Aged Out No longer eligi ble based on patient's age to complete this topic MENINGOCOCCAL (Group B) VACC INE SHARED DECISION-MAKING Aged Out No longer eligibl e based on patient's age to complete this topic MENINGOCOCCAL GROUPS A/C/Y/W VACCINE Aged Out No longer eligible b ased on patient's age to complete this topic PNEUMOCOCCAL VACCINE Aged Out No long er eligible based on patient's age to complete this topic Insurance ANTHEM ANTHEM Care Teams Fruit Grader Operator Relationship Specialty Start Date End Date Herber Mcqueen MD [address] [place] [address] [place] [address] PCP - General 04/02/18
[2025-05-11 08:32] VITALS: BP 124/73; PULSE 91; RESP 18; TEMP 37.5; O2SAT 97
--- NOTE | 2025-05-11 08:51 | ED_ITS ---
HPI - URI/Sore Throat General Chief Complaint: Upper Respiratory Infection Stated Complaint: Fever, body aches, congestion Time Seen by Provider: 05/11/25 08:40 Source: patient and RN notes reviewed Mode of arrival: ambulatory Limitations: no limitations History of Present Illness HPI Narrative: 39-year-old female presents Express Care complaining of upper respiratory symptoms for 3 days. Patient states her symptoms started sneezing, runny nose, itchy eyes, congestion. Since then patient states her symptoms progressed to worsening congestion, cough, ear fullness, body aches, and fevers. Patient any chest pain or shortness of breath, nausea, vomiting, diarrhea, or any other symptoms. Patient has been taking Sudafed and Tylenol with some relief. Patient denies any significant past medical history Related Data Home Medications ?Medication ?Instructions ?Recorded ?Confirmed ?Last Taken ?Type duloxetine 60 mg capsule,delayed 60 mg PO DAILY 03/26/22 09/09/24 Unknown History release levonorgestrel (Mirena) 1 device intrauterine ONCE 03/26/22 09/09/24 Unknown History bimekizumab-bkzx 160 mg/mL 160 mg subcut ONCE 05/11/25 05/11/25 Unknown History subcutaneous syringe (Bimzelx) Allergies Allergy/AdvReac Type Severity Reaction Status Date / Time prochlorperazine Allergy Severe MUSCLE Verified 05/11/25 08:32 DYSTONIA Review of Systems Review of Systems: CONSTITUTIONAL: Positive for fever, and body aches. Negative for Chills, or sweats. EYES: Denies visual changes, redness, or discharge. ENT: Positive for congestion and ear fullness. Negative for rhinorrhea sore throat, or otalgia. CARDIOVASCULAR: Denies chest pain, palpitations, or edema. RESPIRATORY: Positive for cough. Negative for dyspnea or wheezing. GASTROINTESTINAL: Denies abdominal pain, nausea, vomiting, or diarrhea. GENITOURINARY: Denies dysuria or hematuria. SKIN: Denies rash or itching. MUSCULOSKELETAL: Denies back pain, joint pain, or myalgia. NEUROLOGIC: Denies headache, numbness, or weakness. PSYCHIATRIC: Denies anxiety or depression. All other systems reviewed are negative, except as documented in HPI. [facility] Past Medical History Medical History BMI 32.0-32.9,adult Herniated disc Hypothyroidism affecting Morbid obesity with BMI of 40.0-44.9, adult Family History Family History Mother Diabetes mellitus Alcohol abuse Father Hypertension Grandparent Colon cancer Breast cancer Pancreatic cancer Sibling SIDS (sudden syndrome) Social History Social History Years smoked: 10 Smoking status: Former smoker Second hand tobacco smoke exposure: No Alcohol intake: current Substance use: never Substance use type: does not use Lack of Transportation: No Lack of Food: Never True Current Housing: I Have Housing Concerned About Future Housing: No Difficulty Paying Gas/Electric Bills: No Difficulty Paying for Meds: No Currently Unemployed: No Education: Bachelor's Degree Difficulty w/ Childcare or Family Care: No Living arrangements: with family Occupation/Education: occupation 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 There is no relevant family history pertinent to the patient complaint. Exam Narrative: GENERAL: This is a well-nourished, well-developed adult, in no apparent distress. They are non ill-appearing, nontoxic appearing. HEAD: normocephalic, atraumatic. EYES: Sclera clear/white. Vision is grossly intact. Conjunctiva normal bilaterally. Extraocular movements intact. EARS: External ears normal, auditory canals clear and without drainage, TMs without erythema or perforation. Hearing grossly intact. NOSE: External nose normal with no obvious nasal discharge, nasal turbinates erythematous, no rhinorrhea. THROAT: Mucous membranes moist, posterior pharynx without redness or swelling, no exudate. Uvula is midline. Postnasal drip present. NECK: Neck supple, non-tender without lymphadenopathy, masses or thyromegaly. CARDIOVASCULAR: Regular rate and rhythm without murmurs, gallops, or rubs. RESPIRATORY: Rhonchi to the posterior middle lobes bilaterally. Breath sounds equal bilaterally. No wheezes, rales. Respiratory rate normal, respiratory effort nonlabored, no respiratory distress SKIN: warm, Dry, intact with no suspicious lesions or rash, good texture and turgor. NEURO: awake, alert, and oriented to person, place and time. There were no obvious focal neurologic abnormalities. EXTREMITIES: No joint tenderness, effusion, or edema noted. BACK: Nontender without deformity. Course Course Emergency Course: Portions of this record may have been created with voice recognition software Level of Care: Express Care Visit Vital Signs Vital signs: Vital Signs Temperature 99.5 F 05/11/25 08:32 Pulse Rate 91 05/11/25 08:32 Respiratory Rate 18 05/11/25 08:32 Blood Pressure 124/73 05/11/25 08:32 Pulse Oximetry 97 05/11/25 08:32 Oxygen Delivery Room Air 05/11/25 08:32 Temperature 99.5 F 05/11/25 08:32 Pulse Rate 91 05/11/25 08:32 Respiratory Rate 18 05/11/25 08:32 Blood Pressure 124/73 05/11/25 08:32 Pulse Oximetry 97 05/11/25 08:32 Oxygen Delivery Room Air 05/11/25 08:32 MDM - URI/Sore Throat MDM Narrative Medical decision making narrative: Rapid COVID in flu are negative. Chest x-ray showed no evidence pneumonia or acute findings. Patient likely has viral bronchitis. Will treat with Medrol Dosepak, albuterol inhaler, and Tessalon Perles. Discussed physical exam findings. Advised supportive measures and signs/symptoms to go to the ER. Pt is appropriate for outpt treatment and f/u. Differential Diagnosis Differential diagnosis: Likely upper respiratory infection, viral infection and bronchitis Lab Data Attestation: I reviewed the patient's lab results. Labs: Lab Results 05/11/25 Range/Units 08:55 POC Influenza A Ag Negative (Negative) POC Influenza B Ag Negative (Negative) POC SARS CoV-2 Ag Negative (Negative) Discharge Plan Discharge Clinical Impression: Acute viral bronchitis Patient Disposition: Home Condition: Stable Instructions: Acute Bronchitis (ED) Additional Instructions: Viral illness may last between 7-21 days; antibiotics do not cure viral illness and are NOT recommended at this time. Your chest x-ray is negative for any pneumonia or acute findings. Your COVID and flu swabs are negative today. Is likely a viral bronchitis. Take the Medrol Dosepak as directed. May take the benzonatate tablets as needed for cough. Use albuterol inhaler as needed for wheezing or shortness of breath. You may take Tylenol or ibuprofen as needed for pain or fevers. Symptomatic treatment includes: rest, fluids, and increase humidity of the air at home. Follow-up with PCP in 3-5 days. Please go to the ER if he develops worsening fevers, difficulty breathing, chest pain, weakness, or any other serious concerns. Patient Language: Spanish Prescriptions: New benzonatate 100 mg capsule 100 mg PO TID PRN (Reason: cough) Qty: 20 0RF albuterol sulfate [Ventolin HFA] 90 mcg/actuation HFA aerosol inhaler 2 puff inhalation QID PRN (Reason: shortness of breath or wheezing) Qty: 8.5 0RF methylprednisolone 4 mg tablets,dose pack See Rx Instructions .ROUTE .COMPLEX Qty: 21 0RF Rx Instructions: for 6 days No Action Mirena 20 mcg/24 hours (7 yrs) 52 mg Intrauterine Device 1 device INTRAUTERINE ONCE duloxetine 60 mg capsule,delayed release(DR/EC) 60 mg PO DAILY Bimzelx 160 mg/mL syringe 160 mg subcut ONCE pseudoephedrine HCl [12 Hour Decongestant] 120 mg tablet extended release 120 mg PO Q12H PRN (Reason: nasal congestion) Qty: 20 0RF dextromethorphan-guaifenesin [Mucinex DM] 60-1,200 mg tablet extended release 12 hr 1 tablet PO Q12H Qty: 12 0RF Follow-up/Referrals: Bertha William REGISTERED PHARMACIST [Primary Care Provider] - Stand Alone Forms: Work/School Release IP Time of Disposition: 09:07
[2025-05-11 08:57] LABS: EDCOVIDSCREEN Negative (Negative); EDINFLUASCREEN Negative (Negative); EDINFLUBSCREEN Negative (Negative)
== END 2025-05-11 09:11 | disposition home or self-care (01) ==
PROVIDERS: PCP Nurse Practitioner Family
DX: J20.8 Acute bronchitis due to other specified organisms (principal); Z20.822 Contact with and (suspected) exposure to COVID-19; Z87.891 Personal history of nicotine dependence; E66.01 Morbid (severe) obesity due to excess calories; Z68.32 Body mass index [BMI] 32.0-32.9, adult
CPT/HCPCS: 71046; 87426; 87804; 99213; G0463